=== PATIENT | female | born 1950 | race Hispanic/Latino ===

== ENCOUNTER 2018-07-08 00:27 | Inpatient (IN) | payer MEDICARE, OTHER ==
[2018-07-08 00:28] VITALS: BMI 30.9
[2018-07-08 00:31] VITALS: O2SAT 98
--- NOTE | 2018-07-08 00:31 | ED PDOC ---
Psych Transfer Clearance - Clearance Statement Clearance Statement: Reviewed vital signs, lab results and transfer papers. Patient clinically stable for psychiatric admission.
[2018-07-08] MEDS ORDERED: Alum-Mag Hydrox-Simethicone Susp (30 mL) PO PRN (01:26)
[2018-07-08] MEDS ORDERED: Magnesium Hydroxide Susp 30 ml UD PO PRN (01:26)
[2018-07-08] MEDS ORDERED: Bismuth Subsalicylate 262 mg/15 ml Sus (240 ml) PO PRN (01:26)
--- NOTE | 2018-07-08 01:32 | PCM.BM ---
<PrabhaBhavna P - Last Filed: 07/08/18 01:30> Treatment Plan Problems - Problems identified on initial assessmt Social isolation Date Initiated: 07/08/18 Time Initiated: 01:31 Status: Active Hopelessness/Helplessness Date Initiated: 07/08/18 Time Initiated: 01:31 Assessment reference: NA Status: Active Medication nonadherence Date Initiated: 07/08/18 Time Initiated: 01:32 Status: Active Treatment assets and liabiliti Patient Assests: cooperative, negotiates basic needs, cognitively intact Patient Liabilities: poor support system, relationship conflicts, medical pro blems - Milieu Protocol Maintain good personal hygiene: daily Encourage regular showers, daily Remind patient to perform daily oral care, daily Assist patient to perform ADL's Conduct patient checks and document Observation sheet: Q15 minutes Maintain personal safety: every shift Educate patient to report safety concerns to staff, every shift Monitor environment for contraband/sharps Medication safety: Monitor for expected outcome, potential side effects: every shift, Assess barriers to learning: every shift, Assess readiness for medication education: every shift <Opal Matos M - Last Filed: 07/08/18 11:07> Family Contact Family involvement: Family/SO is involved Family contact: Patient agrees to contact, Family has been contacted by patient, Telephone contact initiated by staff Family contact name: Phyllis - daughter Family contacted how many times per week?: 2 - Outside Agency Dr. Robi De La Rosa MD Care involvment: Information-sharing Agency contact number: - Goals for Treatment Patient goals for treatment: Pt will improve overall mood. Pt will be free of suicidal thoughts. Pt will develop strategies for thought distraction when ruminating on the past. Pt will explore and resolve grief and loss issues. Pt will be compliant with medication management. Pt will attend clinical and activity groups. Pt will participate in unit activities. Pt will improve her sleep by getting 7-8 hous of restful sleep each night. Discharge/Continuing Care - Education Needs Education Needs: Family Medication, Family Diagnosis/Disease Process, Family Coping Skills, Family Placement options, Family Community resources, Family Activities of Daily Living, Family Health Practices/Safety, Family Personal Hygiene/Grooming, Family Aftercare Safety Plan, Patient Medication, Patient Diagnosis/Disease Process, Patient Coping Skills, Patient Placement options, Patient Community resources, Patient Activities of Daily Living, Patient Health Practices/Safety, Patient Personal Hygiene/Grooming, Patient Aftercare Safety Plan - Discharge Discharge Criteria: Tolerates medication w/o severe side effects, Normal sleep pattern, Ability to care for self, Reduction of target symptoms, Other (Free of manic symptoms) Discharge to:: Home, With Family - Additional Comments 07/08/18 11:12 Pt seen and discussed in team meeting. Reason for hospitalization reviewed and discussed. Pt was a transfer form [facility] ED. Pt was recently discharged from [facility] on 07/06/2018. Pt reported she presented herself to the emergency room because "I was lonely and going nurse coordinator nurse coordinator. I was in analisa land." When asked whats he meant by "[place]" pt stated 'I was going crazy." Pt reported that she the of her she has not been able to cope with his loss and feels lonely. Pt's in March 2018. Pt reported that she was to her for 54 years and "when the security blanket is swiped off underneath your feet you get depressed and like me." Pt continued to state "I lost it" and "I don't feel right." Pt reported feeling depressed. Pt denied feelings of anger and anxiety. Pt reported that her daughter, Phyllis is upset with her because "I checked myself into the hospital again." Pt continued to talk about sleep issues since 1990 and calling it "psychosis." Pt's medical and social issues reviewed and discussed. Pt's medications reviewed and discussed. Pt verbalized agreement to Abilify 5mg. Please refer to Dr. Herzog's progress note for additional information. Pt presents with pressured and loud speech. Pt later returned to Dr. Herzog and feature writer and reported that she believes she can resurrect the . Pt provided SW with verbal authorization to contact he Phyllis brooke ([phone]) for additional collateral information. SW will continue to follow case. - Treatment Team Participation Discussed with Family/SO: No Was Patient/Family/SO present at Treatment Team Meeting: Yes <Esthela Vargas - Last Filed: 07/13/18 09:21> - Diagnosis (1) Bipolar I disorder Status: Acute Interventions: Medication management, Individual and group therapy, Psychoeducation 07/13/18 09:20
[2018-07-08 08:04] LABS: HEMOGLOBIN 12.6 g/dL (12.0-16.0); MEAN CELL VOLUME 78.8 fl (81.0-99.0); MEAN CORPUSCULAR HEMOGLOBIN 25.3 pg (27.0-31.0); MEAN CORPUSCULAR HGB CONC 32.1 g/dL (33.0-37.0); RBC 4.99 Mil/uL (3.80-5.20); RED CELL DISTRIBUTION WIDTH 15.7 % (11.5-14.5); WHITE BLOOD COUNT 5.8 K/uL (4.8-10.8)
[2018-07-08 08:24] LABS: ALB/GLOB RATIO 1.3 (1.0-2.1); ALBUMIN 4.4 g/dL (3.5-5.0); ALT/SGPT 21 U/L (9-52); AST/SGOT 24 U/L (14-36); BLOOD UREA NITROGEN 12 mg/dl (7-17); CALCIUM 9.7 mg/dL (8.4-10.2); GFR NON-AFRICAN AMERICAN 55; HDL CHOLESTEROL 57 MG/DL (30-70)
[2018-07-08 08:30] LABS: IRON 52 ug/dL (37-170)
[2018-07-08 08:36] LABS: LDL CHOLESTEROL 71 mg/dL (0-129)
[2018-07-08 08:48] LABS: % IRON SATURATION 13 % (20-55); TOTAL IRON BINDING CAPACITY 387 ug/dL (250-450)
[2018-07-08 09:00] LABS: FERRITIN 10.5 ng/Ml (11.1-264.0)
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
[2018-07-08 17:37] LABS: FOLATE > 20.0 ng/mL
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
--- NOTE | 2018-07-10 15:27 | PCM.PYCHPN ---
Psychiatric Progress Note - Psychiatric Progress Note Patient seen today, length of contact: pt evaluated discussed with team chart reviewed Patient Chief Complaint: patient has been less agitated and less delusional today but says that she cant resurrect humans now but still can resurrect animals.pt has remained with hypomanic mood and racing thoughts and remains with poor insight and poor judgement and need further stabilization. Medication Change: Yes (increasing trileptal) Medical Record Reviewed: Yes Mental Status Examination - Cognitive Function Orientation: Person, Place, Situation, Time Memory: Intact Attention: WNL Concentration: Poor Association: Loose Fund of Knowledge: Poor - Mood Mood: Depressed, Anxious - Affect Affect: Constricted, Other - Speech Speech: Loud, Pressured - Formal Thought Process Formal Thought Process: Delusions, Paranoia, Flight of ideas - Suicidal Ideation Suicidal Ideation: No - Homicidal Ideation Homicidal Ideation: No Goal/Treatment Plan - Goal/Treatment Plan Need for Continued Stay: Remain at risks for inpatient hospitalization, Discharge may exacerbated symptoms Progress Toward Problem(s) and Goals/Treatment Plan: Pt continue abilify 10 mg daily and increase trileptal to 300 mg bid for mood stabilization and insomnia and racing thoughts and engage pt in therapy. Prn meds for agitation. Psychoeducation hospitalist consult for medical issues
[2018-07-11] MEDS: Acyclovir 5% OINT 15 APPLIC/15 GM EXT SCH ×3 (16:22→22:09)
--- NOTE | 2018-07-11 16:28 | PCM.PYCHPN ---
Psychiatric Progress Note - Psychiatric Progress Note Patient seen today, length of contact: pt evaluated discussed with team chart reviewed Patient Chief Complaint: dont know i get anxious Problems Identified/Issues Discussed: alteration in mood alteration in cognition Medical Problems: per chart Diagnostic Results: per chart DSM 5 Symptoms Update: alteration in mood alteration in cognition Medication Change: No Medical Record Reviewed: Yes Consults ordered or reviewed: pt seen by hospitalist Mental Status Examination - Cognitive Function Orientation: Person, Place, Situation, Time Memory: Intact Attention: WNL Concentration: Poor Association: Loose Fund of Knowledge: Poor Decription of patient's judgement and insights: impaired - Mood Mood: Depressed, Anxious - Affect Affect: Constricted, Other - Speech Speech: Loud, Pressured - Formal Thought Process Formal Thought Process: Delusions, Paranoia, Flight of ideas - Suicidal Ideation Suicidal Ideation: No - Homicidal Ideation Homicidal Ideation: No Goal/Treatment Plan - Goal/Treatment Plan Need for Continued Stay: Remain at risks for inpatient hospitalization, Discharge may exacerbated symptoms Progress Toward Problem(s) and Goals/Treatment Plan: inpt milieu adjust meds per clinical status pt placed on 1 to 1 frequent redirection to remain in room-pt found to have shingles being treated by hospitalist-contact isolation discharge planning in progress Estimated Date of D/C: 07/17/18 - Smoking Cessation Smoking Cessation Initiated: No Reason for not providing: pt deferred
[2018-07-12] MEDS: Acyclovir 5% OINT 15 APPLIC/15 GM EXT SCH ×8 (01:02→22:15)
--- NOTE | 2018-07-12 11:19 | PCM.PYCHPN ---
Psychiatric Progress Note - Psychiatric Progress Note Patient seen today, length of contact: pt evaluated discussed with team chart reviewed Patient Chief Complaint: pt has been placed on contact precautions 2nd to shingles-was evaluated by hospitalist yesterday and started on zovirax ointment. pt was placed on a one one yesterday because pt required frequent redirection to remain in room. pt subsequently has been moved to [facility] which is in front of nursing station. pt continues to anxious at times, labile, requires frequent redirection, shouts out loud at times, pt 07/07/18 qtc 436ms-receiving abilify 10mg po am and seroquel 100mg po hs. pt received prn vistaril 25mg po prn for anxiety today. she received vistaril 25mg po last night. pt is reportedly eating and adherent with standing medications. pt denies stiffness involuntary movements. Problems Identified/Issues Discussed: alteration in mood alteration in cognition Medical Problems: per chart Diagnostic Results: per psychiatry per medicine per nursing per health and social care teacher DSM 5 Symptoms Update: labile, anxious Medication Change: No Medical Record Reviewed: Yes Consults ordered or reviewed: pt seen by hospitalist Mental Status Examination - Cognitive Function Orientation: Person, Place, Situation, Time Memory: Intact Attention: WNL Concentration: Poor Association: Loose Fund of Knowledge: Poor Decription of patient's judgement and insights: impaired - Mood Mood: Depressed, Anxious - Affect Affect: Constricted, Other - Speech Speech: Loud, Pressured - Formal Thought Process Formal Thought Process: Delusions, Paranoia, Flight of ideas - Suicidal Ideation Suicidal Ideation: No - Homicidal Ideation Homicidal Ideation: No Goal/Treatment Plan - Goal/Treatment Plan Need for Continued Stay: Remain at risks for inpatient hospitalization, Discharge may exacerbated symptoms Progress Toward Problem(s) and Goals/Treatment Plan: inpt milieu adjust meds per clinical status-pt continues to be labile will add trileptal 150 mg po 1300 continue trileptil 300mg po bid-team can reassess in am discontinue 1 to 1 pt found to have shingles being treated by hospitalist-contact isolation discharge planning in progress Estimated Date of D/C: 07/17/18 - Smoking Cessation Smoking Cessation Initiated: No Reason for not providing: defers
[2018-07-13] MEDS: Acyclovir 5% OINT 15 APPLIC/15 GM EXT SCH ×8 (01:05→21:08)
[2018-07-13] MEDS: Risperidone M tab 1 MG PO SCH ×2 (10:45→21:08)
--- NOTE | 2018-07-13 10:53 | PCM.PYCHPN ---
Psychiatric Progress Note - Psychiatric Progress Note Patient seen today, length of contact: Pt evaluated, case discussed w/ team, chart reviewed Patient Chief Complaint: "I can resurrect animals." Problems Identified/Issues Discussed: Patient continues to be manic, disorganized, tangential, difficult to redirect and believes she has special abilities to resurrect animals. She is also yelling on the unit for no apparent reason. We discussed increasing the Trileptal and switching her to Risperdal with the possibility of putting her on a long acting injectable as she has very poor compliance with her medications. Medication Change: Yes (Increase Trileptal; Start Risperdal) Medical Record Reviewed: Yes Consults ordered or reviewed: Medicine consult Mental Status Examination - Cognitive Function Orientation: Person, Place, Situation, Time Attention: Poor Concentration: Poor Association: Loose Fund of Knowledge: Poor Decription of patient's judgement and insights: Poor I/J - Mood Mood: Anxious - Affect Affect: Other (Labile) - Speech Speech: Loud, Pressured - Formal Thought Process Formal Thought Process: Delusions, Paranoia, Flight of ideas Psychotic Thoughts and Behaviors: +Delusions - Suicidal Ideation Suicidal Ideation: No - Homicidal Ideation Homicidal Ideation: No Goal/Treatment Plan - Goal/Treatment Plan Need for Continued Stay: Remain at risks for inpatient hospitalization, Discharge may exacerbated symptoms Progress Toward Problem(s) and Goals/Treatment Plan: Bipolar I Disorder -Increase Trileptal -Start Risperdal; patient may benefit from long acting injectable if she is agreeable as she has poor compliance with treatment and medications -Medicine consult -Individual and group therapy -Psychoeducation -Disposition planning Estimated Date of D/C: 07/17/18
[2018-07-13 15:53] VITALS: PULSE 87; RESP 18; TEMP 97.6
[2018-07-13 18:27] LABS: ALB/GLOB RATIO 1.3 (1.0-2.1); ALBUMIN 3.7 g/dL (3.5-5.0); ALT/SGPT 22 U/L (9-52); AST/SGOT 21 U/L (14-36); BLOOD UREA NITROGEN 12 mg/dl (7-17); CALCIUM 8.6 mg/dL (8.4-10.2); GFR NON-AFRICAN AMERICAN > 60
[2018-07-13 20:19] VITALS: BP 148/84
[2018-07-13] MEDS ORDERED: Risperidone M tab 1 MG PO SCH (21:00)
[2018-07-13 21:11] LABS: BLOOD UREA NITROGEN 11 mg/dl (7-17); GFR NON-AFRICAN AMERICAN > 60
[2018-07-13 21:12] LABS: CALCIUM 8.7 mg/dL (8.4-10.2)
--- NOTE | 2018-07-14 10:54 | PCM.PYCHDC ---
Mental Status Examination - Mental Status Examination Description of patient's judgement and insight: Poor I/J Psychotic Thoughts and Behaviors: +Delusions Discharge Summary - Discharge Note Reason for Hospitalization: 68 yo female w/ h/o Bipolar disorder admitted w/ acute erick and psychosis. Laboratory Data: Abnormal Lab Results 07/13/18 07/13/18 17:02 20:24 Sodium 111 L* 112 L* Potassium 3.7 3.8 Chloride 76 L 76 L Carbon Dioxide 24 25 Anion Gap 15 15 BUN 12 11 Creatinine 0.8 0.7 Est GFR ( Amer) > 60 > 60 Est GFR (Non-Af Amer) > 60 > 60 Random Glucose 115 H 117 H Calcium 8.6 8.7 Total Bilirubin 0.4 AST 21 ALT 22 Alkaline Phosphatase 80 Total Protein 6.5 Albumin 3.7 Globulin 2.8 Albumin/Globulin Ratio 1.3 Consultations:: List each consultation separately and include: 1. Reason for request. 2. Findings. 3. Follow-up Consultations: Medicine consult Summary of Hospital Course include:: 1. Description of specific treatment plan utilized for patients during their course of treatmen. 2. Summarize the time- course for resolution of acute symptoms and/or regressed behaviors. 3. Describe issues identified and worked on during hospitalization. 4. Describe medication utilized. 5. Describe medical problems identified and treated. 6. Reassessment of suicide risk Summary of Hospital Course: Patient was transferred to the medical unit for further treatment and management of severe hyponatremia (111) possibly secondary to excessive drinking of water vs treatment with trileptal (which was discontinued after hyponatremia was discovered). - Diagnosis (1) Bipolar I disorder Status: Acute - Final Diagnosis (DSM 5) Condition upon Discharge: SERIOUS DSM 5: Bipolar Disorder; Hyponatremia Disposition: Trans to Other Acute Care Hosp Follow-up Treatment Plan: Bipolar I Disorder -Stop Trileptal -Transfer to medicine for treatment of severe hyponatremia
== END 2018-07-13 23:00 | disposition short-term general hospital (02) | DRG 885 ==
LOC: H.ER 00:27 → H.STEP 00:31
PROVIDERS: ADMIT Psychiatry & Neurology Psychiatry; ATTEND Psychiatry & Neurology Psychiatry
PROC: GZ51ZZZ Individual Psychotherapy, Behavioral (ICD-10-PCS; principal; 2018-07-08)
PROC: GZ56ZZZ Individual Psychotherapy, Supportive (ICD-10-PCS; 2018-07-08)
DX: F31.64 Bipolar disorder, current episode mixed, severe, with psychotic features (principal); Z86.010 Personal history of colon polyps; Z87.01 Personal history of pneumonia (recurrent); Z87.891 Personal history of nicotine dependence; F41.9 Anxiety disorder, unspecified; B02.9 Zoster without complications

== ENCOUNTER 2018-07-13 23:26 | Inpatient (IN) | payer MEDICARE, OTHER ==
--- NOTE | 2018-07-14 00:15 | ED PDOC ---
HPI: General Adult Time Seen by Provider: 07/13/18 23:31 Chief Complaint (Provider): Abnormal Lab History Per: Patient History/Exam Limitations: no limitations Additional Complaint(s): 68 y/o female with history of depression and bipolar disorder presents for evaluation of abnormal lab. Patient was on the geropsych unit and she was n oted to be very polydipsic. Sodium level was performed and she was found to have a level of 111; sodium was repeated a few hours ago and level was 112. Case was referred by Dr. Hernandez to be admitted for further monitoring and correction of electrolyte abnormality. Patient denies any headache or vomiting. Chart review reveals patient had 1 prior history of hyponatremia. Past Medical History Reviewed: Historical Data, Nursing Documentation, Vital Signs - Medical History PMH: Bipolar Disorder, Depression, Pneumonia Denies: Anxiety, Diabetes, Hepatitis, HIV, HTN, Paranoia, Post Traumatic Stress Disorder, Schizophrenia, Seizures, Sexually Transmitted Disease - Surgical History Surgical History: Denies: Pacemaker - Family History Family History: States: Unknown Family Hx - Social History Current smoker - smoking cessation education provided: No Alcohol: None Drugs: Denies - Immunization History Hx Tetanus Toxoid Vaccination: No Hx Influenza Vaccination: No Hx Pneumococcal Vaccination: No - Home Medications Home Medications: Ambulatory Orders Medication Instructions Recorded Divalproex [Depakote DR] 500 mg PO BID 12/13/13 QUEtiapine [SEROquel] 300 mg PO BID 12/13/13 Polyethylene Glycol 3350 [Miralax] 17 gm PO DAILY 02/28/16 ALPRAZolam [Xanax] 1 mg PO QAM 08/24/16 ALPRAZolam [Xanax] 3 mg PO HS 08/24/16 Lactulose 20 gm PO BID PRN #180 ml 08/31/16 - Allergies Allergies/Adverse Reactions: Allergies Allergy/AdvReac Type Severity Reaction Status Date / Time No Known Allergies Allergy Verified 07/07/18 14:38 Review of Systems ROS Statement: Except As Marked, All Systems Reviewed And Found Negative Constitutional: Positive for: Other (polydipsia) Gastrointestinal: Negative for: Vomiting Neurological: Negative for: Headache Physical Exam - Reviewed Nursing Documentation Reviewed: Yes Vital Signs Reviewed: Yes - Physical Exam Appears: Positive for: Non-toxic, No Acute Distress (obese) Head Exam: Positive for: ATRAUMATIC, NORMAL INSPECTION, NORMOCEPHALIC Skin: Positive for: Normal Color, Warm, DRY Eye Exam: Positive for: EOMI, Normal appearance, PERRL ENT: Positive for: Normal ENT Inspection Neck: Positive for: Normal, Painless ROM Cardiovascular/Chest: Positive for: Regular Rate, Rhythm. Negative for: Murmur Respiratory: Positive for: Normal Breath Sounds. Negative for: Respiratory Distress Gastrointestinal/Abdominal: Positive for: Normal Exam, Soft, Other (obese abdomen). Negative for: Tenderness Back: Positive for: Normal Inspection Extremity: Positive for: Normal ROM. Negative for: Pedal Edema, Deformity Neurological/Psych: Positive for: Awake, Alert, Normal Tone, Mood/Affect (flat). 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 Case referred to Dr. Hernandez for admission. Scribe Attestation: Documented by Curtis Shaffer, acting as a scribe Ave Donaldson MD Provider Scribe Attestation: All medical record entries made by the Scribe were at my direction and p ersonally dictated by me. I have reviewed the chart and agree that the record accurately reflects my personal performance of the history, physical exam, medical decision making, and the department course for this patient. I have also personally directed, reviewed, and agree with the discharge instructions and disposition Disposition - Clinical Impression Clinical Impression: Hyponatremia, Psychogenic polydipsia - Disposition Disposition Time: 23:00 Condition: FAIR
[2018-07-14 01:03] LABS: BASO % 0.6 % (0.0-2.0); EOS # 0.2 K/uL (0.0-0.7); EOS % 2.4 % (0.0-4.0); HEMOGLOBIN 12.6 g/dL (12.0-16.0); LYMPH # 1.5 K/uL (1.0-4.3); LYMPH % 22.2 % (20.0-40.0); MEAN CELL VOLUME 75.2 fl (81.0-99.0); MEAN CORPUSCULAR HEMOGLOBIN 25.7 pg (27.0-31.0); MEAN CORPUSCULAR HGB CONC 34.2 g/dL (33.0-37.0); MEAN PLATELET VOLUME 7.8 fl (7.2-11.7); MONO # 0.6 K/uL (0.0-0.8); NEUT # 4.4 K/uL (1.8-7.0); NEUT % 65.8 % (50.0-75.0); RBC 4.88 Mil/uL (3.80-5.20); RED CELL DISTRIBUTION WIDTH 15.9 % (11.5-14.5); WHITE BLOOD COUNT 6.7 K/uL (4.8-10.8)
[2018-07-14 01:05] LABS: SQUAMOUS EPITHIAL < 1 /hpf (0-5); URINE BACTERIA MOD (<OCC); URINE BILIRUBIN NEGATIVE (NEGATIVE); URINE BLOOD MODERATE (NEGATIVE); URINE CLARITY CLEAR (Clear); URINE COLOR STRAW (YELLOW); URINE GLUCOSE (UA) NEG (NEGATIVE); URINE LEUKOCYTE ESTERASE MOD Leu/uL (Negative); URINE PROTEIN NEGATIVE (NEGATIVE); URINE UROBILINOGEN 0.2-1.0 mg/dL (0.2-1.0)
[2018-07-14 01:09] LABS: PROTHROMBIN TIME 11.3 Seconds (9.8-13.1)
[2018-07-14 01:11] LABS: PARTIAL THROMBOPLASTIN TIME 35.2 Seconds (25.6-37.1)
[2018-07-14 01:18] LABS: B-TYPE NATRIURETIC PEPTIDE 114 pg/ml (0-900)
[2018-07-14 01:19] LABS: ALB/GLOB RATIO 1.3 (1.0-2.1); ALBUMIN 4.3 g/dL (3.5-5.0); ALT/SGPT 21 U/L (9-52); AST/SGOT 36 U/L (14-36); BLOOD UREA NITROGEN 13 mg/dl (7-17); CALCIUM 8.9 mg/dL (8.4-10.2); GFR NON-AFRICAN AMERICAN > 60
[2018-07-14] MEDS: Sodium Chloride 3% 500 ML IV SCH ×2 (02:36→17:52)
--- NOTE | 2018-07-14 04:14 | CP.PCM.HP ---
History of Present Illness - History of Present Illness History of Present Illness: PMD: Not on staff Chief Complaint: Hyponatremia The Patient was seen and examined on the Psychiatric Unit HPI: The hx was obtained from the patient, the medical staff and after review of the laboratory and medical records. This is a 68 years old female with no significant past medical record, transferred from the [facility] [place] [facility] to the [facility] psychiatric Unit for management depression. Here she was noted drinking large amounts of water and blood work was sent to the lab for electrolytes which showed Sodium of 111. This was repeated and the new level was 112mMol/L No hx of diabetes. She referred only thirst but no headache, dizziness, nausea, vomits, palpitation, chest pain, urinary symptoms nor diarrhea. 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 absent: Blurred Vision, Diplopia, Sees Flashes Ears: absent: Ear Discharge, Ear Pain, Tinnitus, Dizziness Nose/Mouth/Throat: absent: Epistaxis, Nasal Congestion, Nasal Discharge, Sinus Pain, Sinus Pressure - Cardiovascular Cardiovascular: absent: Chest Pain, Dyspnea, Edema, Orthopnea - Respiratory Respiratory: absent: Cough, Dyspnea, Wheezing, Stridor - Gastrointestinal Gastrointestinal: absent: Constipation, Diarrhea, Loose Stools, Nausea - Genitourinary Genitourinary: absent: Dysuria, Flank Pain, Hematuria, Pyuria - Musculoskeletal Musculoskeletal: absent: Arthralgias, Myalgias - Integumentary Integumentary: absent: Skin Ulcer, Sores, Striae, Swelling - Psychiatric Psychiatric: Depression. absent: Anxiety - Endocrine Endocrine: Polydipsia, Polyphagia. absent: Palpitations, Polyuria - Hematologic/Lymphatic Hematologic: absent: Easy Bleeding, Easy Bruising Past Patient History - Infectious Disease Hx of Infectious Diseases: None - Tetanus Immunizations Tetanus Immunization: Unknown - Past Social History Smoking Status: Former Smoker Chewing Tobacco Use: No Cigar Use: No Alcohol: None Drugs: Denies - CARDIAC Hx Cardiac Disorders: No Hx Hypertension: No Hx Pacemaker: No - PULMONARY Hx Pneumonia: Yes - NEUROLOGICAL Hx Seizures: No - HEENT Hx HEENT Problems: Yes (eyeglasses) - RENAL Hx Chronic Kidney Disease: Yes Other/Comment: Hyponatremia 2017 - ENDOCRINE/METABOLIC Hx Endocrine Disorders: No - HEMATOLOGICAL/ONCOLOGICAL Hx Blood Disorders: No Hx Human Immunodeficiency Virus (HIV): No - INTEGUMENTARY Other/Comment: red burn to right arm - MUSCULOSKELETAL/RHEUMATOLOGICAL Hx Musculoskeletal Disorders: No Hx Falls: No - GASTROINTESTINAL Hx Gastrointestinal Disorders: No Other/Comment: colonoscopy 02/28/2016 colon polyps with bx - GENITOURINARY/GYNECOLOGICAL Hx Sexually Transmitted Disorders: No - PSYCHIATRIC Hx Anxiety: No Hx Bipolar Disorder: Yes Hx Depression: Yes Hx Paranoia: No Hx Post Traumatic Stress Disorder: No Hx Schizophrenia: No - SURGICAL HISTORY Hx Surgeries: No Other/Comment: Anal Fistula repair - ANESTHESIA Hx Anesthesia Reactions: No Hx Malignant Hyperthermia: No Meds Allergies/Adverse Reactions: Allergies Allergy/AdvReac Type Severity Reaction Status Date / Time No Known Allergies Allergy Verified 07/07/18 14:38 Physical Exam - Constitutional Appears: No Acute Distress - Head Exam Head Exam: ATRAUMATIC, NORMOCEPHALIC - Eye Exam Eye Exam: EOMI, Normal appearance - ENT Exam ENT Exam: Mucous Membranes Moist, Normal Exam, Normal External Ear Exam - Neck Exam Neck exam: Positive for: Full Rom, Normal Inspection. Negative for: Lym phadenopathy, Tenderness - Respiratory Exam Respiratory Exam: Clear to Auscultation Bilateral. absent: Rales, Rhonchi, Wheezes, Stridor - Cardiovascular Exam Cardiovascular Exam: REGULAR RHYTHM, RRR, +S1, +S2. absent: Gallop, JVD - GI/Abdominal Exam GI & Abdominal Exam: Normal Bowel Sounds, Soft. absent: Mass, Organomegaly, Tenderness - Rectal Exam Rectal Exam: Deferred - Extremities Exam Extremities exam: Positive for: full ROM, normal inspection. Negative for: calf tenderness, pedal edema - Back Exam Back exam: NORMAL INSPECTION. absent: CVA tenderness (L), CVA tenderness (R) Additional comments: Red rashes diffuse at both buttocks - Neurological Exam Neurological exam: Alert, CN II-XII Intact, Oriented x3, Reflexes Normal - Psychiatric Exam Psychiatric exam: Normal Affect, Normal Mood - Skin Skin Exam: Dry, Intact, Normal Color, Warm Results - Vital Signs Recent Vital Signs: Last Vital Signs Temp 97.9 F 07/14/18 00:18 Pulse 78 07/14/18 00:18 Resp 17 07/14/18 00:18 BP 99/60 L 07/14/18 00:18 Pulse Ox 97 07/14/18 00:18 - Labs Result Diagrams: 07/14/18 00:45 07/14/18 04:15 Labs: Laboratory Results - last 24 hr 07/14/18 07/14/18 07/14/18 00:45 00:45 00:45 WBC 6.7 RBC 4.88 Hgb 12.6 Hct 36.7 MCV 75.2 L D MCH 25.7 L MCHC 34.2 RDW 15.9 H Plt Count 239 MPV 7.8 Neut % (Auto) 65.8 Lymph % (Auto) 22.2 [place] % (Auto) 9.0 Eos % (Auto) 2.4 Baso % (Auto) 0.6 Neut # (Auto) 4.4 Lymph # (Auto) 1.5 [place] # (Auto) 0.6 Eos # (Auto) 0.2 Baso # (Auto) 0.0 PT INR APTT Sodium 114 L* Potassium 4.1 Chloride 75 L Carbon Dioxide 26 Anion Gap 17 BUN 13 Creatinine 0.7 Est GFR ( Amer) > 60 Est GFR (Non-Af Amer) > 60 POC Glucose (mg/dL) Random Glucose 101 Serum Osmolality Calcium 8.9 Magnesium 1.7 Total Bilirubin 0.7 AST 36 D ALT 21 Alkaline Phosphatase 80 NT-Pro-B Natriuret Pep 114 Total Protein 7.6 Albumin 4.3 Globulin 3.3 Albumin/Globulin Ratio 1.3 TSH 3rd Generation 1.88 Urine Color Urine Clarity Urine pH Ur Specific [place] Urine Protein Urine Glucose (UA) Urine Ketones Urine Blood Urine Nitrate Urine Bilirubin Urine Urobilinogen Ur Leukocyte Esterase Urine RBC (Auto) Urine Microscopic WBC Ur Squamous Epith Cells Urine Bacteria Urine Osmolality 270 L Ur Random Sodium 70 Ur Random Potassium 20.7 07/14/18 07/14/18 07/14/18 00:45 00:45 00:45 WBC RBC Hgb Hct MCV MCH MCHC RDW Plt Count MPV Neut % (Auto) Lymph % (Auto) [place] % (Auto) Eos % (Auto) Baso % (Auto) Neut # (Auto) Lymph # (Auto) [place] # (Auto) Eos # (Auto) Baso # (Auto) PT 11.3 INR 1.0 APTT 35.2 Sodium Potassium Chloride Carbon Dioxide Anion Gap BUN Creatinine Est GFR ( Amer) Est GFR (Non-Af Amer) POC Glucose (mg/dL) Random Glucose Serum Osmolality 253 L Calcium Magnesium Total Bilirubin AST ALT Alkaline Phosphatase NT-Pro-B Natriuret Pep Total Protein Albumin Globulin Albumin/Globulin Ratio TSH 3rd Generation Urine Color Straw Urine Clarity Clear Urine pH 7.0 Ur Specific [place] 1.006 Urine Protein Negative Urine Glucose (UA) Neg Urine Ketones Negative Urine Blood Moderate Urine Nitrate Negative Urine Bilirubin Negative Urine Urobilinogen 0.2-1.0 Ur Leukocyte Esterase Mod Urine RBC (Auto) 3 Urine Microscopic WBC 6 H Ur Squamous Epith Cells < 1 Urine Bacteria Mod H Urine Osmolality Ur Random Sodium Ur Random Potassium 07/14/18 00:45 WBC RBC Hgb Hct MCV MCH MCHC RDW Plt Count MPV Neut % (Auto) Lymph % (Auto) [place] % (Auto) Eos % (Auto) Baso % (Auto) Neut # (Auto) Lymph # (Auto) [place] # (Auto) Eos # (Auto) Baso # (Auto) PT INR APTT Sodium Potassium Chloride Carbon Dioxide Anion Gap BUN Creatinine Est GFR ( Amer) Est GFR (Non-Af Amer) POC Glucose (mg/dL) 107 Random Glucose Serum Osmolality Calcium Magnesium Total Bilirubin AST ALT Alkaline Phosphatase NT-Pro-B Natriuret Pep Total Protein Albumin Globulin Albumin/Globulin Ratio TSH 3rd Generation Urine Color Urine Clarity Urine pH Ur Specific [place] Urine Protein Urine Glucose (UA) Urine Ketones Urine Blood Urine Nitrate Urine Bilirubin Urine Urobilinogen Ur Leukocyte Esterase Urine RBC (Auto) Urine Microscopic WBC Ur Squamous Epith Cells Urine Bacteria Urine Osmolality Ur Random Sodium Ur Random Potassium Assessment & Plan - Assessment and Plan (Free Text) Plan: 68 y/o woman w/ pmh of bipolar disorder and depression, admitted to Psych Unit for Depression on 07/08/18. Her Sodium has decreasd to 111mMol/L after drinking large amount of water. #. Hyponatremia secondary to Psychogenic Polydipsia - patient received Lasix 40mg IVP - Restrict water to one Liter daily - 3% Sodium Chloride - electrolytes Q4H - [facility] #.Bipolar Disorder type I - Consult Psychiatry Dr Herzog - management as per psych team - continue Psychiatric medications #. Herpes Simplex on Buttocks - Acyclovir #. DVT prophylaxis with Lovenox #. Code Status: Full - Date & Time Date: 07/14/18 Time: 04:14
[2018-07-14 05:15] LABS: BLOOD UREA NITROGEN 13 mg/dl (7-17); CALCIUM 8.7 mg/dL (8.4-10.2); GFR NON-AFRICAN AMERICAN > 60
[2018-07-14 07:41] VITALS: BMI 32.4
--- NOTE | 2018-07-14 08:24 | CARD ---
APPROVED REPORT Date of service: 07/14/2018 EKG Measurement Heart [id number] <Conclusion> Normal sinus rhythm Normal ECG
[2018-07-14] MEDS: POLYETHYLENE GLYCOL 3350 17 GM/Dose PACKET PO SCH (08:38)
[2018-07-14] MEDS ORDERED: QUEtiapine 300 MG TABLET PO SCH (09:00)
[2018-07-14] MEDS ORDERED: Divalproex 500 mg DR(BID formulation) PO SCH (09:00)
[2018-07-14 09:58] LABS: BLOOD UREA NITROGEN 14 mg/dl (7-17); CALCIUM 8.9 mg/dL (8.4-10.2); GFR NON-AFRICAN AMERICAN > 60
[2018-07-14] MEDS: Enoxaparin 40 mg Syringe SC SCH (10:56)
--- NOTE | 2018-07-14 12:20 | CP.PCM.CON ---
History of Present Illness - History of Present Illness History of Present Illness: pt is a 68ys old female with previous diagnosis of bipolar disorder, has been admitted to geriatric psychiatry for increased depression as her recently , pt has been presenting with irritability restlessness and delusional thought process she was noted drinking large amounts of water and blood work was sent to the lab for electrolytes which showed Sodium of 111. on evaluation pt is awake alert ,oriented to person and place, speech is underproductive mood is anxious, affect irritable and she is not cooperative with the interview , denied any current perceptual disturbances, denied suicidal or homicidal ideation Past Patient History - Infectious Disease Hx of Infectious Diseases: None - Tetanus Immunizations Tetanus Immunization: Unknown - Past Medical History & Family History Past Medical History?: Yes - Past Social History Smoking Status: Former Smoker Chewing Tobacco Use: No Cigar Use: No Alcohol: None Drugs: Denies - CARDIAC Hx Cardiac Disorders: No Hx Hypertension: No Hx Pacemaker: No - PULMONARY Hx Pneumonia: Yes - NEUROLOGICAL Hx Seizures: No - HEENT Hx HEENT Problems: Yes (eyeglasses) - RENAL Hx Chronic Kidney Disease: Yes Other/Comment: Hyponatremia 2017 - ENDOCRINE/METABOLIC Hx Endocrine Disorders: No - HEMATOLOGICAL/ONCOLOGICAL Hx Blood Disorders: No Hx Human Immunodeficiency Virus (HIV): No - INTEGUMENTARY Other/Comment: red burn to right arm - MUSCULOSKELETAL/RHEUMATOLOGICAL Hx Musculoskeletal Disorders: No Hx Falls: No - GASTROINTESTINAL Hx Gastrointestinal Disorders: No Other/Comment: colonoscopy 02/28/2016 colon polyps with bx - GENITOURINARY/GYNECOLOGICAL Hx Sexually Transmitted Disorders: No - PSYCHIATRIC Hx Anxiety: No Hx Bipolar Disorder: Yes Hx Depression: Yes Hx Paranoia: No Hx Post Traumatic Stress Disorder: No Hx Schizophrenia: No - SURGICAL HISTORY Hx Surgeries: No Other/Comment: Anal Fistula repair - ANESTHESIA Hx Anesthesia Reactions: No Hx Malignant Hyperthermia: No Meds Allergies/Adverse Reactions: Allergies Allergy/AdvReac Type Severity Reaction Status Date / Time No Known Allergies Allergy Verified 07/07/18 14:38 - Medications Medications: Current Medications Enoxaparin Sodium (Lovenox) 40 mg SC DAILY GREGORIO; Protocol Last Admin: 07/14/18 10:56 Dose: 40 mg Sodium Chloride (Hypertonic Saline 3%) 500 mls @ 35 mls/hr IV .[id number] [facility] Stop: 07/15/18 01:46 Last Admin: 07/14/18 02:36 Dose: 35 mls/hr Lactulose (Enulose) 20 gm PO BID PRN PRN Reason: Constipation Polyethylene Glycol (Miralax) 17 gm PO DAILY GREGORIO Last Admin: 07/14/18 08:38 Dose: 17 gm Sodium Chloride (Sodium Chloride Tab) 1 gm PO DAILY [facility] Results - Vital Signs Recent Vital Signs: Last Vital Signs Temp 97.9 F 07/14/18 11:58 Pulse 85 07/14/18 11:58 Resp 18 07/14/18 11:58 BP 125/77 07/14/18 11:58 Pulse Ox 98 07/14/18 11:58 - Labs Result Diagrams: 07/14/18 00:45 07/14/18 08:00 Labs: Laboratory Results - last 24 hr 07/14/18 07/14/18 07/14/18 00:45 00:45 00:45 WBC 6.7 RBC 4.88 Hgb 12.6 Hct 36.7 MCV 75.2 L D MCH 25.7 L MCHC 34.2 RDW 15.9 H Plt Count 239 MPV 7.8 Neut % (Auto) 65.8 Lymph % (Auto) 22.2 [place] % (Auto) 9.0 Eos % (Auto) 2.4 Baso % (Auto) 0.6 Neut # (Auto) 4.4 Lymph # (Auto) 1.5 [place] # (Auto) 0.6 Eos # (Auto) 0.2 Baso # (Auto) 0.0 PT INR APTT Sodium 114 L* Potassium 4.1 Chloride 75 L Carbon Dioxide 26 Anion Gap 17 BUN 13 Creatinine 0.7 Est GFR ( Amer) > 60 Est GFR (Non-Af Amer) > 60 POC Glucose (mg/dL) Random Glucose 101 Serum Osmolality Calcium 8.9 Magnesium 1.7 Total Bilirubin 0.7 AST 36 D ALT 21 Alkaline Phosphatase 80 NT-Pro-B Natriuret Pep 114 Total Protein 7.6 Albumin 4.3 Globulin 3.3 Albumin/Globulin Ratio 1.3 TSH 3rd Generation 1.88 Urine Color Urine Clarity Urine pH Ur Specific [place] Urine Protein Urine Glucose (UA) Urine Ketones Urine Blood Urine Nitrate Urine Bilirubin Urine Urobilinogen Ur Leukocyte Esterase Urine RBC (Auto) Urine Microscopic WBC Ur Squamous Epith Cells Urine Bacteria Urine Osmolality 270 L Ur Random Sodium 70 Ur Random Potassium 20.7 07/14/18 07/14/1807/14/19 00:45 00:45 00:45 WBC RBC Hgb Hct MCV MCH MCHC RDW Plt Count MPV Neut % (Auto) Lymph % (Auto) [place] % (Auto) Eos % (Auto) Baso % (Auto) Neut # (Auto) Lymph # (Auto) [place] # (Auto) Eos # (Auto) Baso # (Auto) PT 11.3 INR 1.0 APTT 35.2 Sodium Potassium Chloride Carbon Dioxide Anion Gap BUN Creatinine Est GFR ( Amer) Est GFR (Non-Af Amer) POC Glucose (mg/dL) Random Glucose Serum Osmolality 253 L Calcium Magnesium Total Bilirubin AST ALT Alkaline Phosphatase NT-Pro-B Natriuret Pep Total Protein Albumin Globulin Albumin/Globulin Ratio TSH 3rd Generation Urine Color Straw Urine Clarity Clear Urine pH 7.0 Ur Specific [place] 1.006 Urine Protein Negative Urine Glucose (UA) Neg Urine Ketones Negative Urine Blood Moderate Urine Nitrate Negative Urine Bilirubin Negative Urine Urobilinogen 0.2-1.0 Ur Leukocyte Esterase Mod Urine RBC (Auto) 3 Urine Microscopic WBC 6 H Ur Squamous Epith Cells < 1 Urine Bacteria Mod H Urine Osmolality Ur Random Sodium Ur Random Potassium 07/14/18 07/14/18 07/14/18 00:45 04:15 08:00 WBC RBC Hgb Hct MCV MCH MCHC RDW Plt Count MPV Neut % (Auto) Lymph % (Auto) [place] % (Auto) Eos % (Auto) Baso % (Auto) Neut # (Auto) Lymph # (Auto) [place] # (Auto) Eos # (Auto) Baso # (Auto) PT INR APTT Sodium 115 L* 118 L* Potassium 3.6 4.0 Chloride 77 L 81 L Carbon Dioxide 27 22 Anion Gap 15 19 BUN 13 14 Creatinine 0.9 0.8 Est GFR ( Amer) > 60 > 60 Est GFR (Non-Af Amer) > 60 > 60 POC Glucose (mg/dL) 107 Random Glucose 95 93 Serum Osmolality Calcium 8.7 8.9 Magnesium Total Bilirubin AST ALT Alkaline Phosphatase NT-Pro-B Natriuret Pep Total Protein Albumin Globulin Albumin/Globulin Ratio TSH 3rd Generation Urine Color Urine Clarity Urine pH Ur Specific [place] Urine Protein Urine Glucose (UA) Urine Ketones Urine Blood Urine Nitrate Urine Bilirubin Urine Urobilinogen Ur Leukocyte Esterase Urine RBC (Auto) Urine Microscopic WBC Ur Squamous Epith Cells Urine Bacteria Urine Osmolality Ur Random Sodium Ur Random Potassium Assessment & Plan - Assessment and Plan (Free Text) Assessment: delirium hyperactive due to hyponatremia / bipolar disorder Plan: please hold trileptal as it can cause more hyponatremia start risperidone mtab 0.5mg bid and 0.5mg qhs
[2018-07-14 12:40] LABS: BLOOD UREA NITROGEN 12 mg/dl (7-17); CALCIUM 8.7 mg/dL (8.4-10.2); GFR NON-AFRICAN AMERICAN > 60
--- NOTE | 2018-07-14 14:10 | CP.PCM.CON ---
History of Present Illness - History of Present Illness History of Present Illness: 68 y/o female with hx/o Bipolar disorder & depression on multiple psych meds was transferred to geriatric Psych [facility] from [facility] [place]. Admission labs showed Ser Sodium of 110. Pt was transferred to ER. Renal consult is requested because of Ser Sodium level of 112. Past Patient History - Infectious Disease Hx of Infectious Diseases: None - Tetanus Immunizations Tetanus Immunization: Unknown - Past Medical History & Family History Past Medical History?: Yes - Past Social History Smoking Status: Former Smoker Chewing Tobacco Use: No Cigar Use: No Alcohol: None Drugs: Denies - CARDIAC Hx Cardiac Disorders: No Hx Hypertension: No Hx Pacemaker: No - PULMONARY Hx Pneumonia: Yes - NEUROLOGICAL Hx Seizures: No - HEENT Hx HEENT Problems: Yes (eyeglasses) - RENAL Hx Chronic Kidney Disease: Yes Other/Comment: Hyponatremia 2017 - ENDOCRINE/METABOLIC Hx Endocrine Disorders: No - HEMATOLOGICAL/ONCOLOGICAL Hx Blood Disorders: No Hx Human Immunodeficiency Virus (HIV): No - INTEGUMENTARY Other/Comment: red burn to right arm - MUSCULOSKELETAL/RHEUMATOLOGICAL Hx Musculoskeletal Disorders: No Hx Falls: No - GASTROINTESTINAL Hx Gastrointestinal Disorders: No Other/Comment: colonoscopy 02/28/2016 colon polyps with bx - GENITOURINARY/GYNECOLOGICAL Hx Sexually Transmitted Disorders: No - PSYCHIATRIC Hx Anxiety: No Hx Bipolar Disorder: Yes Hx Depression: Yes Hx Paranoia: No Hx Post Traumatic Stress Disorder: No Hx Schizophrenia: No - SURGICAL HISTORY Hx Surgeries: No Other/Comment: Anal Fistula repair - ANESTHESIA Hx Anesthesia Reactions: No Hx Malignant Hyperthermia: No Meds Allergies/Adverse Reactions: Allergies Allergy/AdvReac Type Severity Reaction Status Date / Time No Known Allergies Allergy Verified 07/07/18 14:38 - Medications Medications: Current Medications Enoxaparin Sodium (Lovenox) 40 mg SC DAILY [facility]; Protocol Last Admin: 07/14/18 10:56 Dose: 40 mg Sodium Chloride (Hypertonic Saline 3%) 500 mls @ 35 mls/hr IV .[id number] [facility] Stop: 07/15/18 01:46 Last Admin: 07/14/18 02:36 Dose: 35 mls/hr Lactulose (Enulose) 20 gm PO BID PRN PRN Reason: Constipation Polyethylene Glycol (Miralax) 17 gm PO DAILY [facility] Last Admin: 07/14/18 08:38 Dose: 17 gm Risperidone (Risperdal Tab) 0.5 mg PO BID [facility] Risperidone (Risperdal Tab) 0.5 mg PO HS [facility] Sodium Chloride (Sodium Chloride Tab) 1 gm PO DAILY [facility] Last Admin: 07/14/18 13:32 Dose: 1 gm Physical Exam - Constitutional Appears: Confused Additional comments: Pt is lethargig arousable to her name but falls back to sleep, Answers simple questios by saying yes or no. - Head Exam Head Exam: ATRAUMATIC, NORMOCEPHALIC - Eye Exam Additional comments: Conkjunctiva pink Sclera anicteric - ENT Exam ENT Exam: Mucous Membranes Moist - Neck Exam Additional comments: Supple - Respiratory Exam Respiratory Exam: NORMAL BREATHING PATTERN Additional comments: Lungs clear - Cardiovascular Exam Cardiovascular Exam: REGULAR RHYTHM Additional comments: No gallops - GI/Abdominal Exam Additional comments: Abd. is soft obese & nontender. - Extremities Exam Additional comments: No ECC Results - Vital Signs Recent Vital Signs: Last Vital Signs Temp 97.9 F 07/14/18 11:58 Pulse 86 07/14/18 11:59 Resp 20 07/14/18 11:59 BP 125/77 07/14/18 11:58 Pulse Ox 98 07/14/18 11:59 - Labs Result Diagrams: 07/14/18 00:45 07/14/18 12:00 Labs: Laboratory Results - last 24 hr 07/14/18 07/14/18 07/14/18 00:45 00:45 00:45 WBC 6.7 RBC 4.88 Hgb 12.6 Hct 36.7 MCV 75.2 L D MCH 25.7 L MCHC 34.2 RDW 15.9 H Plt Count 239 MPV 7.8 Neut % (Auto) 65.8 Lymph % (Auto) 22.2 [place] % (Auto) 9.0 Eos % (Auto) 2.4 Baso % (Auto) 0.6 Neut # (Auto) 4.4 Lymph # (Auto) 1.5 [place] # (Auto) 0.6 Eos # (Auto) 0.2 Baso # (Auto) 0.0 PT INR APTT Sodium 114 L* Potassium 4.1 Chloride 75 L Carbon Dioxide 26 Anion Gap 17 BUN 13 Creatinine 0.7 Est GFR ( Amer) > 60 Est GFR (Non-Af Amer) > 60 POC Glucose (mg/dL) Random Glucose 101 Serum Osmolality Calcium 8.9 Magnesium 1.7 Total Bilirubin 0.7 AST 36 D ALT 21 Alkaline Phosphatase 80 NT-Pro-B Natriuret Pep 114 Total Protein 7.6 Albumin 4.3 Globulin 3.3 Albumin/Globulin Ratio 1.3 TSH 3rd Generation 1.88 Urine Color Urine Clarity Urine pH Ur Specific [place] Urine Protein Urine Glucose (UA) Urine Ketones Urine Blood Urine Nitrate Urine Bilirubin Urine Urobilinogen Ur Leukocyte Esterase Urine RBC (Auto) Urine Microscopic WBC Ur Squamous Epith Cells Urine Bacteria Urine Osmolality 270 L Ur Random Sodium 70 Ur Random Potassium 20.7 07/14/18 07/14/18 07/14/18 00:45 00:45 00:45 WBC RBC Hgb Hct MCV MCH MCHC RDW Plt Count MPV Neut % (Auto) Lymph % (Auto) [place] % (Auto) Eos % (Auto) Baso % (Auto) Neut # (Auto) Lymph # (Auto) [place] # (Auto) Eos # (Auto) Baso # (Auto) PT 11.3 INR 1.0 APTT 35.2 Sodium Potassium Chloride Carbon Dioxide Anion Gap BUN Creatinine Est GFR ( Amer) Est GFR (Non-Af Amer) POC Glucose (mg/dL) Random Glucose Serum Osmolality 253 L Calcium Magnesium Total Bilirubin AST ALT Alkaline Phosphatase NT-Pro-B Natriuret Pep Total Protein Albumin Globulin Albumin/Globulin Ratio TSH 3rd Generation Urine Color Straw Urine Clarity Clear Urine pH 7.0 Ur Specific [place] 1.006 Urine Protein Negative Urine Glucose (UA) Neg Urine Ketones Negative Urine Blood Moderate Urine Nitrate Negative Urine Bilirubin Negative Urine Urobilinogen 0.2-1.0 Ur Leukocyte Esterase Mod Urine RBC (Auto) 3 Urine Microscopic WBC 6 H Ur Squamous Epith Cells < 1 Urine Bacteria Mod H Urine Osmolality Ur Random Sodium Ur Random Potassium 07/14/18 07/14/18 07/14/18 00:45 04:15 08:00 WBC RBC Hgb Hct MCV MCH MCHC RDW Plt Count MPV Neut % (Auto) Lymph % (Auto) [place] % (Auto) Eos % (Auto) Baso % (Auto) Neut # (Auto) Lymph # (Auto) [place] # (Auto) Eos # (Auto) Baso # (Auto) PT INR APTT Sodium 115 L* 118 L* Potassium 3.6 4.0 Chloride 77 L 81 L Carbon Dioxide 27 22 Anion Gap 15 19 BUN 13 14 Creatinine 0.9 0.8 Est GFR ( Amer) > 60 > 60 Est GFR (Non-Af Amer) > 60 > 60 POC Glucose (mg/dL) 107 Random Glucose 95 93 Serum Osmolality Calcium 8.7 8.9 Magnesium Total Bilirubin AST ALT Alkaline Phosphatase NT-Pro-B Natriuret Pep Total Protein Albumin Globulin Albumin/Globulin Ratio TSH 3rd Generation Urine Color Urine Clarity Urine pH Ur Specific [place] Urine Protein Urine Glucose (UA) Urine Ketones Urine Blood Urine Nitrate Urine Bilirubin Urine Urobilinogen Ur Leukocyte Esterase Urine RBC (Auto) Urine Microscopic WBC Ur Squamous Epith Cells Urine Bacteria Urine Osmolality Ur Random Sodium Ur Random Potassium 07/14/18 12:00 WBC RBC Hgb Hct MCV MCH MCHC RDW Plt Count MPV Neut % (Auto) Lymph % (Auto) [place] % (Auto) Eos % (Auto) Baso % (Auto) Neut # (Auto) Lymph # (Auto) [place] # (Auto) Eos # (Auto) Baso # (Auto) PT INR APTT Sodium 119 L* Potassium 3.7 Chloride 83 L Carbon Dioxide 25 Anion Gap 15 BUN 12 Creatinine 0.7 Est GFR ( Amer) > 60 Est GFR (Non-Af Amer) > 60 POC Glucose (mg/dL) Random Glucose 89 Serum Osmolality Calcium 8.7 Magnesium Total Bilirubin AST ALT Alkaline Phosphatase NT-Pro-B Natriuret Pep Total Protein Albumin Globulin Albumin/Globulin Ratio TSH 3rd Generation Urine Color Urine Clarity Urine pH Ur Specific [place] Urine Protein Urine Glucose (UA) Urine Ketones Urine Blood Urine Nitrate Urine Bilirubin Urine Urobilinogen Ur Leukocyte Esterase Urine RBC (Auto) Urine Microscopic WBC Ur Squamous Epith Cells Urine Bacteria Urine Osmolality Ur Random Sodium Ur Random Potassium Assessment & Plan - Assessment and Plan (Free Text) Assessment: 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 There is no Hx/o heart dis, thyroid disorder & appears euvolemic. Bipolar Disorder. Plan: Agree with hypertonic saline. Pt has received bolus of 100 cc. Second bolus is is just started. Repeat BMP is ordered for 6 pm The rate of correction should be aimed at 12 meq/kg/hr in 24 hrs or 18 meq in 24 hrs. Neuro checks. Suggest CT scan of hesd
[2018-07-14 18:29] LABS: BLOOD UREA NITROGEN 15 mg/dl (7-17); CALCIUM 8.8 mg/dL (8.4-10.2); GFR NON-AFRICAN AMERICAN > 60
[2018-07-15 06:05] LABS: HEMOGLOBIN 11.5 g/dL (12.0-16.0); MEAN CELL VOLUME 76.1 fl (81.0-99.0); MEAN CORPUSCULAR HEMOGLOBIN 25.9 pg (27.0-31.0); MEAN CORPUSCULAR HGB CONC 34.1 g/dL (33.0-37.0); RBC 4.42 Mil/uL (3.80-5.20); RED CELL DISTRIBUTION WIDTH 16.2 % (11.5-14.5); WHITE BLOOD COUNT 3.6 K/uL (4.8-10.8)
[2018-07-15 06:13] LABS: CALCIUM 8.6 mg/dL (8.4-10.2)
[2018-07-15 06:21] LABS: B-TYPE NATRIURETIC PEPTIDE 39.2 pg/ml (0-900)
[2018-07-15] MEDS: Enoxaparin 40 mg Syringe SC SCH ×2 (08:16→08:19)
[2018-07-15] MEDS: POLYETHYLENE GLYCOL 3350 17 GM/Dose PACKET PO SCH ×2 (08:17→08:19)
--- NOTE | 2018-07-15 11:39 | CP.PCM.PN ---
<Krista Temple - Last Filed: 07/15/18 13:31> Subjective - Date & Time of Evaluation Date of Evaluation: 07/15/18 Time of Evaluation: 11:39 - Subjective Subjective: Chief Complaint: Hyponatremia The hx was obtained from the patient, the medical staff and after review of the laboratory and medical records. This is a 68 years old female with no significant past medical record, transferred from the [facility] to the [facility] for management depression. Here she was noted drinking large amounts of water and blood work was sent to the lab for electrolytes which showed Sodium of 111. Sodium level has increased. Patient denies f/n/v/sob. Patient was seen vomiting upon examination. Denies any new complains Objective - Vital Signs/Intake and Output Vital Signs (last 24 hours): Temp Pulse Resp BP Pulse Ox 97.7 F 84 18 102/65 97 07/15/18 07:57 07/15/18 09:00 07/15/18 07:57 07/15/18 07:57 07/15/18 07:57 - Medications Medications: Current Medications Enoxaparin Sodium (Lovenox) 40 mg SC DAILY [facility]; Protocol Last Admin: 07/15/18 08:19 Dose: Not Given Lactulose (Enulose) 20 gm PO BID PRN PRN Reason: Constipation Polyethylene Glycol (Miralax) 17 gm PO DAILY [facility] Last Admin: 07/15/18 08:19 Dose: Not Given Risperidone (Risperdal Tab) 0.5 mg PO BID [facility] Last Admin: 07/15/18 08:16 Dose: 0.5 mg Risperidone (Risperdal Tab) 0.5 mg PO HS [facility] Last Admin: 07/14/18 21:24 Dose: 0.5 mg Sodium Chloride (Sodium Chloride Tab) 1 gm PO DAILY [facility] Last Admin: 07/15/18 08:16 Dose: 1 gm - Labs Labs: 07/15/18 05:45 07/15/18 05:45 PT 11.3 Seconds (9.8-13.1) 07/14/18 00:45 INR 1.0 07/14/18 00:45 APTT 35.2 Seconds (25.6-37.1) 07/14/18 00:45 - Constitutional Appears: Well, Non-toxic, No Acute Distress - Head Exam Head Exam: ATRAUMATIC, NORMOCEPHALIC - Eye Exam Eye Exam: Normal appearance Pupil Exam: NORMAL ACCOMODATION - ENT Exam ENT Exam: Mucous Membranes Moist - Respiratory Exam Respiratory Exam: Clear to Ausculation Bilateral - Cardiovascular Exam Cardiovascular Exam: REGULAR RHYTHM, +S1, +S2 - Neurological Exam Neurological Exam: Alert, Normal Gait Assessment and Plan - Assessment and Plan (Free Text) Assessment: 68 y/o woman w/ pmh of bipolar disorder and depression, admitted to Psych Unit for Depression on 07/08/18. Her Sodium has decreasd to 111mMol/L after drinking large amount of water. Patient rx sodium tablets. Patients NA level todau 07/[address] of the head ordered. Plan: #. Hyponatremia secondary to Psychogenic Polydipsia - patient received Lasix 40mg IVP - Restrict water to one Liter daily - 3% Sodium Chloride - electrolytes Q4H - HbAIC -f/u head CT - Sodium tablets. - Na 127 - Physical therapy on board #.Bipolar Disorder type I - Consult Psychiatry Dr Herzog - management as per psych team - continue Psychiatric medications: risperidone #. Herpes Simplex on Buttocks - Acyclovir #. DVT prophylaxis with Lovenox #. Code Status: Full <Tiffanie Bazan - Last Filed: 07/15/18 14:33> Objective - Vital Signs/Intake and Output Vital Signs (last 24 hours): Temp Pulse Resp BP Pulse Ox 98.0 F 92 H 18 101/66 97 07/15/18 11:41 07/15/18 11:41 07/15/18 11:41 07/15/18 11:41 07/15/18 11:41 - Medications Medications: Current Medications Enoxaparin Sodium (Lovenox) 40 mg SC DAILY [facility]; Protocol Last Admin: 07/15/18 08:19 Dose: Not Given Lactulose (Enulose) 20 gm PO BID PRN PRN Reason: Constipation Polyethylene Glycol (Miralax) 17 gm PO DAILY [facility] Last Admin: 07/15/18 08:19 Dose: Not Given Risperidone (Risperdal Tab) 0.5 mg PO BID [facility] Last Admin: 07/15/18 08:16 Dose: 0.5 mg Risperidone (Risperdal Tab) 0.5 mg PO HS [facility] Last Admin: 07/14/18 21:24 Dose: 0.5 mg Sodium Chloride (Sodium Chloride Tab) 1 gm PO DAILY [facility] Last Admin: 07/15/18 08:16 Dose: 1 gm - Labs Labs: 07/15/18 05:45 07/15/18 05:45 PT 11.3 Seconds (9.8-13.1) 07/14/18 00:45 INR 1.0 07/14/18 00:45 APTT 35.2 Seconds (25.6-37.1) 07/14/18 00:45 Attending/Attestation - Attestation I have personally seen and examined this patient.: Yes I have fully participated in the care of the patient.: Yes I have reviewed all pertinent clinical information, including history, physical exam and plan: Yes Notes (Text): 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 contact dermatitis unlikely Herpes - Pt was started on 3% NAcl - Sodium slowly went up from 111 to 127 - 3% d/c - Free water restriction - antipsychotic hanged to Risperdal -Pt has erythematous pustular rashes scattered on both buttocks - she was treated in Psych with topical Acyclovir, looks like secondarily infected due to scratching - no pain but pruritic as per pt - will start with Bactroban ointment
--- NOTE | 2018-07-15 14:10 | CT ---
Date of service: 07/15/2018 PROCEDURE: CT HEAD WITHOUT CONTRAST. HISTORY: hyponatremia, Bipolar dis COMPARISON: None available. TECHNIQUE: Axial computed tomography images were obtained through the head/brain without intravenous contrast. Radiation dose: Total exam DLP = 889.81 mGy-cm. This CT exam was performed using one or more of the following dose reduction techniques: Automated exposure control, adjustment of the mA and/or kV according to patient size, and/or use of iterative reconstruction technique. FINDINGS: HEMORRHAGE: No intracranial hemorrhage. BRAIN: No mass effect or edema. No atrophy or chronic microvascular ischemic changes. VENTRICLES: Unremarkable. No hydrocephalus. CALVARIUM: Unremarkable. PARANASAL SINUSES: Unremarkable as visualized. No significant inflammatory changes. MASTOID AIR CELLS: Unremarkable as visualized. No inflammatory changes. OTHER FINDINGS: None. IMPRESSION: Normal CT of the Head. No intracranial mass, hemorrhage or evidence of acute infarct.
--- NOTE | 2018-07-15 15:01 | CP.PCM.PN ---
Subjective - Date & Time of Evaluation Date of Evaluation: 07/15/18 Time of Evaluation: 01:00 - Subjective Subjective: Pt is alert today. Oriented to self & place. Verbally communicative. State she feels better. Objective - Vital Signs/Intake and Output Vital Signs (last 24 hours): Temp Pulse Resp BP Pulse Ox 98.0 F 92 H 18 101/66 97 07/15/18 11:41 07/15/18 11:41 07/15/18 11:41 07/15/18 11:41 07/15/18 11:41 - Medications Medications: Current Medications Enoxaparin Sodium (Lovenox) 40 mg SC DAILY [facility]; Protocol Last Admin: 07/15/18 08:19 Dose: Not Given Lactulose (Enulose) 20 gm PO BID PRN PRN Reason: Constipation Mupirocin (Bactroban Cream) 1 applic TOP BID [facility] Polyethylene Glycol (Miralax) 17 gm PO DAILY [facility] Last Admin: 07/15/18 08:19 Dose: Not Given Risperidone (Risperdal Tab) 0.5 mg PO BID [facility] Last Admin: 07/15/18 08:16 Dose: 0.5 mg Risperidone (Risperdal Tab) 0.5 mg PO HS [facility] Last Admin: 07/14/18 21:24 Dose: 0.5 mg Sodium Chloride (Sodium Chloride Tab) 1 gm PO DAILY [facility] Last Admin: 07/15/18 08:16 Dose: 1 gm - Labs Labs: 07/15/18 05:45 07/15/18 05:45 PT 11.3 Seconds (9.8-13.1) 07/14/18 00:45 INR 1.0 07/14/18 00:45 APTT 35.2 Seconds (25.6-37.1) 07/14/18 00:45 - Constitutional Appears: No Acute Distress - Head Exam Head Exam: ATRAUMATIC, NORMOCEPHALIC - Eye Exam Additional comments: Conjunctivae pink - ENT Exam ENT Exam: Mucous Membranes Moist - Neck Exam Additional comments: No jugular venous distension. - Respiratory Exam Respiratory Exam: NORMAL BREATHING PATTERN Additional comments: Lungs clear - Cardiovascular Exam Cardiovascular Exam: REGULAR RHYTHM - GI/Abdominal Exam Additional comments: Soft, obese & nontender - Extremities Exam Additional comments: No pedal edema Assessment and Plan - Assessment and Plan (Free Text) Assessment: Hyponatremia Labs suggestive of SIADH which may be secondary to SSRIs Serum Sodium is improving. Hypertonic saline was stopped yesterday Currently on fluid restriction,, Salt tabs Bipolar disorder/Depression Plan: Continue with current Mx Fluid restriction. Labs in am
[2018-07-15] MEDS ORDERED: Mupirocin 2% Cream TOP SCH (17:00)
[2018-07-15] MEDS ORDERED: Mupirocin 2% Oint 1GM UD TOP SCH (20:45)
[2018-07-16 05:36] LABS: HEMOGLOBIN 11.9 g/dL (12.0-16.0); MEAN CORPUSCULAR HGB CONC 33.8 g/dL (33.0-37.0); RBC 4.58 Mil/uL (3.80-5.20); RED CELL DISTRIBUTION WIDTH 16.5 % (11.5-14.5)
[2018-07-16 05:54] LABS: BLOOD UREA NITROGEN 13 mg/dl (7-17); CALCIUM 9.2 mg/dL (8.4-10.2); GFR NON-AFRICAN AMERICAN > 60
[2018-07-16 05:56] LABS: WHITE BLOOD COUNT 5.6 K/uL (4.8-10.8)
[2018-07-16 07:45] VITALS: RESP 18
[2018-07-16] MEDS: Enoxaparin 40 mg Syringe SC SCH (08:35)
[2018-07-16] MEDS: POLYETHYLENE GLYCOL 3350 17 GM/Dose PACKET PO SCH (08:35)
--- NOTE | 2018-07-16 11:01 | CP.PCM.DIS ---
Provider - Provider Date of Admission: 07/14/18 02:31 Attending physician: Gabriele Hernandez Consults: 07/14/18 07:36 Nephrology Consult Routine Comment: Consulting Provider: Rodolfo Chaudhary Consulting Physician: Rodolfo Chaudhary Reason for Consult: hyponatremia 07/14/18 07:38 Psychiatry Consult Routine Comment: Consulting Provider: Agustina Saldaña Consulting Physician: Agustina Saldaña Reason for Consult: bipolar I disorder, now hyponatremia Time Spent in preparation of Discharge (in minutes): 30 Diagnosis - Discharge Diagnosis (1) Hyponatremia Status: Acute Hospital Course - Lab Results Lab Results: Most Recent Lab Values WBC 5.6 K/uL (4.8-10.8) D 07/16/18 04:30 RBC 4.58 Mil/uL (3.80-5.20) 07/16/18 04:30 Hgb 11.9 g/dL (12.0-16.0) L 07/16/18 04:30 Hct 35.2 % (34.0-47.0) 07/16/18 04:30 MCV 77.0 fl (81.0-99.0) L 07/16/18 04:30 MCH 26.0 pg (27.0-31.0) L 07/16/18 04:30 MCHC 33.8 g/dL (33.0-37.0) 07/16/18 04:30 RDW 16.5 % (11.5-14.5) H 07/16/18 04:30 Plt Count 236 K/uL (130-400) 07/16/18 04:30 MPV 7.8 fl (7.2-11.7) 07/14/18 00:45 Neut % (Auto) 65.8 % (50.0-75.0) 07/14/18 00:45 Lymph % (Auto) 22.2 % (20.0-40.0) 07/14/18 00:45 [place] % (Auto) 9.0 % (0.0-10.0) 07/14/18 00:45 Eos % (Auto) 2.4 % (0.0-4.0) 07/14/18 00:45 Baso % (Auto) 0.6 % (0.0-2.0) 07/14/18 00:45 Neut # (Auto) 4.4 K/uL (1.8-7.0) 07/14/18 00:45 Lymph # (Auto) 1.5 K/uL (1.0-4.3) 07/14/18 00:45 [place] # (Auto) 0.6 K/uL (0.0-0.8) 07/14/18 00:45 Eos # (Auto) 0.2 K/uL (0.0-0.7) 07/14/18 00:45 Baso # (Auto) 0.0 K/uL (0.0-0.2) 07/14/18 00:45 PT 11.3 Seconds (9.8-13.1) 07/14/18 00:45 INR 1.0 07/14/18 00:45 APTT 35.2 Seconds (25.6-37.1) 07/14/18 00:45 Sodium 132 mmol/l (132-148) 07/16/18 04:30 Potassium 3.8 MMOL/L (3.6-5.0) 07/16/18 04:30 Chloride 95 mmol/L (98-107) L 07/16/18 04:30 Carbon Dioxide 26 mmol/L (22-30) 07/16/18 04:30 Anion Gap 15 (10-20) 07/16/18 04:30 BUN 13 mg/dl (7-17) 07/16/18 04:30 Creatinine 0.8 mg/dl (0.7-1.2) 07/16/18 04:30 Est GFR ( Amer) > 60 07/16/18 04:30 Est GFR (Non-Af Amer) > 60 07/16/18 04:30 POC Glucose (mg/dL) 107 mg/dL (65-110) 07/14/18 00:45 Random Glucose 98 mg/dL (65-105) 07/16/18 04:30 Serum Osmolality 259 mosm/kg (272-300) L 07/14/18 17:03 Calcium 9.2 mg/dL (8.4-10.2) 07/16/18 04:30 Magnesium 1.7 MG/DL (1.6-2.3) 07/14/18 00:45 Total Bilirubin 0.7 mg/dl (0.2-1.3) 07/14/18 00:45 AST 36 U/L (14-36) D 07/14/18 00:45 ALT 21 U/L (9-52) 07/14/18 00:45 Alkaline Phosphatase 80 U/L (38-126) 07/14/18 00:45 NT-Pro-B Natriuret Pep 39.2 pg/ml (0-900) 07/15/18 05:45 Total Protein 7.6 G/DL (6.3-8.2) 07/14/18 00:45 Albumin 4.3 g/dL (3.5-5.0) 07/14/18 00:45 Globulin 3.3 gm/dL (2.2-3.9) 07/14/18 00:45 Albumin/Globulin Ratio 1.3 (1.0-2.1) 07/14/18 00:45 Triglycerides 118 mg/DL (0-149) D 07/15/18 05:45 Cholesterol 140 mg/dL (0-199) 07/15/18 05:45 LDL Cholesterol Direct 67 mg/dL (0-129) 07/15/18 05:45 HDL Cholesterol 45 MG/DL (30-70) 07/15/18 05:45 TSH 3rd Generation 1.88 mIU/ML (0.46-4.68) 07/14/18 00:45 Cortisol AM Sample 6.5 ug/dL (4.46-22.7) 07/15/18 05:45 Urine Color Straw (YELLOW) 07/14/18 00:45 Urine Clarity Clear (Clear) 07/14/18 00:45 Urine pH 7.0 (5.0-8.0) 07/14/18 00:45 Ur Specific [place] 1.006 (1.003-1.030) 07/14/18 00:45 Urine Protein Negative mg/dL (NEGATIVE) 07/14/18 00:45 Urine Glucose (UA) Neg mg/dL (NEGATIVE) 07/14/18 00:45 Urine Ketones Negative mg/dL (NEGATIVE) 07/14/18 00:45 Urine Blood Moderate (NEGATIVE) 07/14/18 00:45 Urine Nitrate Negative (NEGATIVE) 07/14/18 00:45 Urine Bilirubin Negative (NEGATIVE) 07/14/18 00:45 Urine Urobilinogen 0.2-1.0 mg/dL (0.2-1.0) 07/14/18 00:45 Ur Leukocyte Esterase Mod [place]/uL (Negative) 07/14/18 00:45 Urine RBC (Auto) 3 /hpf (0-3) 07/14/18 00:45 Urine Microscopic WBC 6 /hpf (0-5) H 07/14/18 00:45 Ur Squamous Epith Cells < 1 /hpf (0-5) 07/14/18 00:45 Urine Bacteria Mod (<OCC) H 07/14/18 00:45 Urine Osmolality 329 mosm/kg (300-1000) 07/14/18 22:30 Ur Random Sodium < 5 mmol/L 07/14/18 22:30 Ur Random Potassium 20.7 mmol/L 07/14/18 00:45 - Hospital Course Hospital Course: 68 y/o woman w/ pmh of bipolar disorder and depression, admitted to Psych Unit for Depression on 07/08/18. Her Sodium has decreasd to 111mMol/L after drinking large amount of water. Patient rx sodium tablets. Patients NA level today 07/[address] of the head ordered and WNL. Patients Na level WNL today 07/16. Urinary tract infection(moderate bacteria in urine), continue bactrim for three more days. Patient to be transferred to psych. Please continue strict fluid restriction( 1 L) Discharge Exam - Head Exam Head Exam: ATRAUMATIC, NORMOCEPHALIC - Eye Exam Eye Exam: Normal appearance Pupil Exam: NORMAL ACCOMODATION - ENT Exam ENT Exam: Mucous Membranes Moist - Respiratory Exam Respiratory Exam: NORMAL BREATHING PATTERN - Cardiovascular Exam Cardiovascular Exam: REGULAR RHYTHM, +S1, +S2 - GI/Abdominal Exam GI & Abdominal Exam: Normal Bowel Sounds - Exam Exam: NORMAL INSPECTION - Neurological Exam Neurological exam: Alert - Psychiatric Exam Psychiatric exam: Normal Affect - Skin Skin Exam: Normal Color Discharge Plan - Follow Up Plan Condition: FAIR Disposition: DISCHARGE TO PSYCH HOSPITAL
[2018-07-16 12:00] VITALS: PULSE 114; TEMP 98.1; O2SAT 94
--- NOTE | 2018-07-16 12:24 | CP.PCM.PN ---
Subjective - Date & Time of Evaluation Date of Evaluation: 07/16/18 Time of Evaluation: 11:55 - Subjective Subjective: Pt is aler. Ambulating well. Appears anxious. Objective - Vital Signs/Intake and Output Vital Signs (last 24 hours): Temp Pulse Resp BP Pulse Ox 98.1 F 114 H 18 169/84 H 94 L 07/16/18 12:00 07/16/18 12:00 07/16/18 12:00 07/16/18 12:00 07/16/18 12:00 - Medications Medications: Current Medications Enoxaparin Sodium (Lovenox) 40 mg SC DAILY [facility]; Protocol Last Admin: 07/16/18 08:35 Dose: Not Given Lactulose (Enulose) 20 gm PO BID PRN PRN Reason: Constipation Mupirocin (Bactroban Ointment) 1 applic TOP BID [facility] Last Admin: 07/16/18 08:35 Dose: 1 applic Polyethylene Glycol (Miralax) 17 gm PO DAILY [facility] Last Admin: 07/16/18 08:35 Dose: Not Given Risperidone (Risperdal Tab) 0.5 mg PO BID [facility] Last Admin: 07/16/18 08:35 Dose: 0.5 mg Risperidone (Risperdal Tab) 0.5 mg PO HS [facility] Last Admin: 07/15/18 21:38 Dose: 0.5 mg Sodium Chloride (Sodium Chloride Tab) 1 gm PO DAILY [facility] Last Admin: 07/15/18 08:16 Dose: 1 gm - Labs Labs: 07/16/18 04:30 07/16/18 04:30 PT 11.3 Seconds (9.8-13.1) 07/14/18 00:45 INR 1.0 07/14/18 00:45 APTT 35.2 Seconds (25.6-37.1) 07/14/18 00:45 - Constitutional Appears: No Acute Distress - Eye Exam Eye Exam: Normal appearance - ENT Exam ENT Exam: Mucous Membranes Moist - Neck Exam Additional comments: JVD negative - Respiratory Exam Respiratory Exam: NORMAL BREATHING PATTERN Additional comments: Lungs clear - Cardiovascular Exam Cardiovascular Exam: REGULAR RHYTHM - Extremities Exam Additional comments: No edema Assessment and Plan - Assessment and Plan (Free Text) Assessment: Nyponatremia corrected SIADH Blood pressures are high. No hx/o HTN. Suggest to decrease dose of salt tablets Lasix one dose today. Plan: Continue fluid restriction Lasix 40 mg po x1 dose
[2018-07-16 15:31] VITALS: BP 160/90
--- NOTE | 2018-07-16 18:00 | PQF ---
PROVIDER RESPONSE TEXT: Hyponatremia most likely SIADH REVIEWER QUERY TEXT: Clarification of Clinical Diagnostic Findings Please clarify if SIADH is ruled in or ruled out? 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
== END 2018-07-16 14:29 | DRG 644 ==
LOC: H.ER 23:26 → H.ERHOLD 07-14 02:31 → H.TEL 07-14 11:05
PROVIDERS: ADMIT Internal Medicine; ATTEND Internal Medicine
DX: E22.2 Syndrome of inappropriate secretion of antidiuretic hormone (principal); F05 Delirium due to known physiological condition; N39.0 Urinary tract infection, site not specified; F31.9 Bipolar disorder, unspecified; T42.1X5A Adverse effect of iminostilbenes, initial encounter; R63.1 Polydipsia; L25.9 Unspecified contact dermatitis, unspecified cause; R03.0 Elevated blood-pressure reading, without diagnosis of hypertension; Z87.891 Personal history of nicotine dependence; Z86.010 Personal history of colon polyps; Z87.01 Personal history of pneumonia (recurrent)

== ENCOUNTER 2018-07-16 12:32 | Inpatient (IN) | payer MEDICARE, OTHER ==
[2018-07-16] MEDS ORDERED: Bismuth Subsalicylate 262 mg/15 ml Sus (240 ml) PO PRN (15:19)
[2018-07-16] MEDS ORDERED: Magnesium Hydroxide Susp 30 ml UD PO PRN (15:19)
[2018-07-16] MEDS ORDERED: Alum-Mag Hydrox-Simethicone Susp (30 mL) PO PRN (15:19)
[2018-07-16] MEDS ORDERED: Mupirocin 2% Oint 1GM UD TOP SCH (17:00)
--- NOTE | 2018-07-16 17:28 | PCM.BM ---
<Awa Kernse E - Last Filed: 07/16/18 17:25> Treatment Plan Problems - Problems identified on initial assessmt Agitated/Aggressive Behavior Date Initiated: 07/16/18 Time Initiated: 17:26 Assessment reference: HP, NA Status: Active Priority: 1 Problem 2 Date Initiated: 07/16/18 Time Initiated: 17:29 Assessment reference: HP, NA Status: Active Altered Thought Process Date Initiated: 07/16/18 Time Initiated: 17:30 Assessment reference: HP, NA Status: Active Treatment assets and liabiliti Patient Assests: cooperative, negotiates basic needs Patient Liabilities: medical problems - Milieu Protocol Maintain good personal hygiene: daily Encourage regular showers, daily Remind patient to perform daily oral care, daily Assist patient to perform ADL's Conduct patient checks and document Observation sheet: Q15 minutes Maintain personal safety: every shift Educate patient to report safety concerns to staff, every shift Monitor environment for contraband/sharps Medication safety: Monitor for expected outcome, potential side effects: every shift, Assess barriers to learning: every shift, Assess readiness for medication education: every shift <Esthela Vargas - Last Filed: 07/17/18 08:35> - Diagnosis (1) Bipolar I disorder Status: Acute Interventions: Medication management, Individual and group therapy, Psychoeducation 07/17/18 08:35 <Opal Matos M - Last Filed: 07/17/18 15:19> Family Contact Family involvement: Family/SO is involved Family contact: Patient agrees to contact, Family has been contacted by patient, Telephone contact initiated by staff Family contact name: Wendy Family contacted how many times per week?: 2 - Outside Agency Dr. Robi De La Rosa MD Care involvment: Information-sharing Agency contact number: [phone] - Goals for Treatment Patient goals for treatment: Pt will improve overall symptoms. Pt will develop strategies for thought distrction when ruminating on the past. Pt will reduce anxiety and improve coping skills. Pt will comply with prescribed medications. Pt will attend clinical and activity groups. Pt will improve appetite and sleep pattern. Discharge/Continuing Care - Education Needs Education Needs: Family Medication, Family Diagnosis/Disease Process, Family Coping Skills, Family Placement options, Family Community resources, Family Nutrition, Family Health Practices/Safety, Family Personal Hygiene/Grooming, Family Aftercare Safety Plan, Patient Medication, Patient Diagnosis/Disease Process, Patient Coping Skills, Patient Placement options, Patient Community resources, Patient Nutrition, Patient Health Practices/Safety, Patient Personal Hygiene/Grooming, Patient Aftercare Safety Plan - Discharge Discharge Criteria: Tolerates medication w/o severe side effects, Free of paranoid thoughts, Free of agitation, Normal sleep pattern, Ability to care for self, Reduction of target symptoms Discharge to:: Home, Custodial, With Family - Additional Comments 07/17/18 15:06 Pt seen and discussed in team meeting. Reason for re-admission reviewed and discussed. Pt continues to present with grandiose, believes that she can resurrect animals. Pt reported that she has resurrected a in the past. Pt presents with pressured and loud speech. Pt reported that she does not have a psychiatric diagnosis. Pt denied being diagnosed with bipolar. Neuropsych testing conducted by Dr. Nedra Curran, Ph.D and pt refused to accept that she has some cognitive deficits. Attending psychiatrist reviewed testing results and current medication regimen with pt. Pt verbalized agreement to medication regimen. Pt's social and medical issues reviewed. Pt provided information writer with verbal and written consent form for daughter, Phyllis and son, Raymundo. Tx plan reviewed and discussed. SW will continue to follow case. - Treatment Team Participation Discussed with Family/SO: No
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
--- NOTE | 2018-07-17 08:40 | PCM.PSYCH ---
Initial Psychiatric Evaluation - Initial Psychiatric Evaluation Type of Admission: Voluntary Legal Status: Capacity Chief Complaint (in patient's own words): Acute psychosis/erick Patient's Reaction to Hospitalization: HPI: 68 yo female w/ h/o bipolar disorder, poor compliance with treatment and medications, recently admitted to [facility], then transferred to medicine for severe hyponatremia secondary to psychogenic polydipsia and possibly due to treatment w/ trileptal (now discontinued), now admitted back to the geriatric psychiatry unit for continued erick, mood lability, bizarre/erratic behavior and delusional beliefs that she can resurrect animals. She denies acute SI/HI. 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; Hyponatremia; Colonic Polyp PSH: Anal Fistule repair SH: Former smoker; no alcohol nor drug use; lives alone Allergies: NKDA Current Medications: Active Medications Generic Name Dose Route Start Last Admin Trade Name Freq PRN Reason Stop Dose Admin Acetaminophen 650 mg 07/16/18 15:19 Tylenol 325mg Tab PO Q4 PRN Pain, moderate (4-7) Al Hydrox/Mg Hydrox/Simethicone 30 ml 07/16/18 15:19 Maalox Plus 30 Ml PO Q4 PRN Dyspepsia Bismuth Subsalicylate 524 mg 07/16/18 15:19 Pepto-Bismol PO Q4 PRN Diarrhea Lorazepam 0.5 mg 07/16/18 15:19 07/16/18 16:30 Ativan PO 07/30/18 15:20 0.5 mg Q6 PRN Administration Anixety/Agitation Lorazepam 0.5 mg 07/16/18 15:22 Ativan PO HS PRN Insomnia Magnesium Hydroxide 30 ml 07/16/18 15:19 Milk Of Magnesia PO HS PRN Constipation Risperidone 2 mg 07/16/18 21:00 07/17/18 08:34 Risperdal Tab PO 2 mg Q12 GREGORIO Administration Past Psychiatric History - Past Psychiatric History Previous Treatment History: Inpatient Pertinent Medical Hx (Current Medical&Sleep Prob, Allergies): Allergies Allergy/AdvReac Type Severity Reaction Status Date / Time No Known Allergies Allergy Verified 07/07/18 14:38 Polyethylene Glycol 3350 [Miralax] 17 gm PO DAILY 02/28/16 Mupirocin 2% Oint UD [Bactroban Ointment] 1 applic TOP BID ea 07/16/18 Sodium Chloride [Sodium Chloride Tab] 1 gm PO 07/16/18 risperiDONE [RisperDAL Tab] 0.5 mg PO BID tab 07/16/18 risperiDONE [RisperDAL Tab] 0.5 mg PO HS tab 07/16/18 Review of Systems - Psychiatric Psychiatric: As Per HPI, Abnormal Sleep Pattern, Anxiety, Behavioral Changes, Ch alexis in Appetite, Difficulty Concentrating, Irritability, Mood Swings, Other (+Delusions) Mental Status Examination - Personal Presentation Personal Presentation: Looks stated age - Affect Affect: Other (Labile) - Motor Activity Motor Activity: Psychomotor Agitation - Reliability in Providing Information Reliability in Providing Information: Poor, due to cognitve impairment - Speech Speech: Tangential - Mood Mood: Euphoric - Formal Thought Process Formal Thought Process: Delusions, Loosening of associations - Obsessions/Compulsions Obsessions: No Compulsions: No - Cognitive Functions Orientation: Person, Place, Situation, Time Sensorium: Alert Estimate of Intelligence: Average Judgement: Imparied, as evidence by: Lack of insight into illness - Risk Risk: Diminished functioning - Strength & Assets Inventory Strength & Assets Inventory: Family support, Cooperative - Limitations Limitations: Living alone, Decreased memory, recent DSM 5 DX - DSM 5 DSM 5 Diagnosis: Bipolar Disorder - Recommended/Plan of Treatment Treatment Recommendations and Plan of Treatment: Bipolar Disorder -Admit to psychiatry unit -Individual and group therapy -Psychoeducation -Increase Risperdal -Fluid Restriction -Medicine consult -Disposition planning Projected ELOS: 7-10 days Discharge Plan and Discharge Criteria: Discharge when patient is psychiatrically stable - Smoking Cessation Smoking Cessation Initiated: No Reason for not providing: Not indicated
[2018-07-17] MEDS ORDERED: POLYETHYLENE GLYCOL 3350 17 GM/Dose PACKET PO SCH (09:00)
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
[2018-07-18 07:28] LABS: HEMOGLOBIN 12.5 g/dL (12.0-16.0); MEAN CELL VOLUME 78.4 fl (81.0-99.0); MEAN CORPUSCULAR HGB CONC 33.2 g/dL (33.0-37.0); RBC 4.81 Mil/uL (3.80-5.20); RED CELL DISTRIBUTION WIDTH 16.4 % (11.5-14.5); WHITE BLOOD COUNT 6.5 K/uL (4.8-10.8)
[2018-07-18 08:12] LABS: ALB/GLOB RATIO 1.2 (1.0-2.1); ALBUMIN 4.1 g/dL (3.5-5.0); ALT/SGPT 22 U/L (9-52); AST/SGOT 28 U/L (14-36); BLOOD UREA NITROGEN 16 mg/dl (7-17); CALCIUM 9.3 mg/dL (8.4-10.2); GFR NON-AFRICAN AMERICAN > 60
--- NOTE | 2018-07-18 11:09 | PCM.PYCHPN ---
Psychiatric Progress Note - Psychiatric Progress Note Patient seen today, length of contact: pt evaluated discussed with team chart reviewed Patient Chief Complaint: I am fine Problems Identified/Issues Discussed: pt seen in bed, anxious mood , irritable affect, under productive speech with poor eye contact, denied changes in sleep or appetite, pt denied command hallucinations, denied suicidal or homicidal ideation DSM 5 Symptoms Update: schizoaffective disorder Medication Change: No Medical Record Reviewed: Yes Mental Status Examination - Cognitive Function Orientation: Person, Place, Situation, Time Attention: WNL Concentration: Poor Association: WNL Decription of patient's judgement and insights: poor insight and judgment - Mood Mood: Anxious, Euphoric - Affect Affect: Other (Labile) Additional comments: labile, irritable - Speech Speech: Loud Additional comments: under productive - Formal Thought Process Formal Thought Process: Delusions, Loosening of associations - Suicidal Ideation Suicidal Ideation: No - Homicidal Ideation Homicidal Ideation: No Goal/Treatment Plan - Goal/Treatment Plan Need for Continued Stay: Severe depression anxiety, Discharge may exacerbated symptoms Progress Toward Problem(s) and Goals/Treatment Plan: continue with risperidone continue with fluid restriction Na level noted 134 group and supportive therapy
--- NOTE | 2018-07-19 12:26 | PCM.PYCHPN ---
Psychiatric Progress Note - Psychiatric Progress Note Patient seen today, length of contact: pt evaluated discussed with team chart reviewed Patient Chief Complaint: I am alright Problems Identified/Issues Discussed: pt seen in bed, guarded and uncooperative, anxious mood , irritable affect, under productive speech with poor eye contact, denied changes in sleep or appetite, pt denied command hallucinations, denied suicidal or homicidal ideation DSM 5 Symptoms Update: schizoaffective disorder Medication Change: No Medical Record Reviewed: Yes Mental Status Examination - Cognitive Function Orientation: Person, Place, Situation, Time Attention: WNL Concentration: Poor Association: WNL Decription of patient's judgement and insights: poor insight and judgment - Mood Mood: Anxious, Euphoric - Affect Affect: Other (Labile) - Speech Speech: Loud - Formal Thought Process Formal Thought Process: Delusions, Loosening of associations - Suicidal Ideation Suicidal Ideation: No - Homicidal Ideation Homicidal Ideation: No Goal/Treatment Plan - Goal/Treatment Plan Need for Continued Stay: Severe depression anxiety, Discharge may exacerbated symptoms Progress Toward Problem(s) and Goals/Treatment Plan: continue with risperidone continue with fluid restriction Na level noted 134 group and supportive therapy
--- NOTE | 2018-07-20 09:19 | PCM.PYCHPN ---
Psychiatric Progress Note - Psychiatric Progress Note Patient seen today, length of contact: Pt evaluated, case discussed w/ team, chart reviewed Patient Chief Complaint: Acute erick Problems Identified/Issues Discussed: Patient continues to be labile, difficult to direct at times, euphoric, pacing the unit. She denies acute psychosis, denies acute AH/VH/paranoia/ability to resurrect animals. Patient has to be directed not to drink excess water. She is agreeable to treatment with Risperdal consta at this time. Patient has a history of poor compliance with treatment and medications. Medication Change: Yes (Start Risperdal Consta) Medical Record Reviewed: Yes Consults ordered or reviewed: Medicine consult, Psychology consult Mental Status Examination - Cognitive Function Orientation: Person, Place, Situation, Time Memory: Impaired - Mood Mood: Euphoric - Affect Affect: Other (Labile) - Speech Speech: Loud - Formal Thought Process Formal Thought Process: Loosening of associations Psychotic Thoughts and Behaviors: Denies acute AH/VH/paranoia/delusions - Suicidal Ideation Suicidal Ideation: No - Homicidal Ideation Homicidal Ideation: No Goal/Treatment Plan - Goal/Treatment Plan Need for Continued Stay: Severe depression anxiety, Discharge may exacerbated symptoms Progress Toward Problem(s) and Goals/Treatment Plan: Bipolar Disorder w/ Psychotic Features -Individual and group therapy -Psychoeducation -Continue Risperdal PO -Start Risperdal Consta 25 mg IM -Fluid Restriction -Medicine consult -Disposition planning
[2018-07-21] MEDS ORDERED: risperiDONE Consta 25mg/2ml Syringe IM ONE (09:00)
--- NOTE | 2018-07-21 10:34 | PCM.PYCHPN ---
Psychiatric Progress Note - Psychiatric Progress Note Patient seen today, length of contact: Pt evaluated, case discussed w/ team, chart reviewed Patient Chief Complaint: Delusions Problems Identified/Issues Discussed: Patient is less labile. She continues to pace on the unit but is redirectable. She took the Risperdal Consta injection this morning. She denies acute AH/VH/paranoia. She continues to believe she can resurrect animals. No violence or aggression. Medication Change: Yes (Start Risperdal Consta 25 mg IM today) Medical Record Reviewed: Yes Consults ordered or reviewed: Medicine consult, Psychology consult Mental Status Examination - Cognitive Function Orientation: Person, Place, Situation, Time Memory: Impaired Decription of patient's judgement and insights: Chronic limitations in insight and judgment - Mood Mood: Neutral - Affect Affect: Other (Labile) - Speech Speech: Loud - Formal Thought Process Formal Thought Process: Loosening of associations Psychotic Thoughts and Behaviors: Denies acute AH/VH/paranoia/delusions - Suicidal Ideation Suicidal Ideation: No - Homicidal Ideation Homicidal Ideation: No Goal/Treatment Plan - Goal/Treatment Plan Need for Continued Stay: Severe depression anxiety, Discharge may exacerbated symptoms Progress Toward Problem(s) and Goals/Treatment Plan: Bipolar Disorder w/ Psychotic Features -Individual and group therapy -Psychoeducation -Continue Risperdal PO -Risperdal Consta 25 mg IM given on 07/21/18 -Fluid Restriction -Medicine consult -Disposition planning- SW to meet with family tomorrow to discuss disposition planning
[2018-07-22 06:48] LABS: BASO % 0.5 % (0.0-2.0); EOS # 0.1 K/uL (0.0-0.7); EOS % 1.4 % (0.0-4.0); HEMOGLOBIN 11.8 g/dL (12.0-16.0); LYMPH # 2.2 K/uL (1.0-4.3); LYMPH % 32.1 % (20.0-40.0); MEAN CELL VOLUME 78.8 fl (81.0-99.0); MEAN CORPUSCULAR HEMOGLOBIN 25.9 pg (27.0-31.0); MEAN CORPUSCULAR HGB CONC 32.9 g/dL (33.0-37.0); MEAN PLATELET VOLUME 7.5 fl (7.2-11.7); MONO # 0.4 K/uL (0.0-0.8); MONO % 6.1 % (0.0-10.0); NEUT # 4.1 K/uL (1.8-7.0); NEUT % 59.9 % (50.0-75.0); RBC 4.57 Mil/uL (3.80-5.20); RED CELL DISTRIBUTION WIDTH 16.2 % (11.5-14.5); WHITE BLOOD COUNT 6.8 K/uL (4.8-10.8)
[2018-07-22 06:55] LABS: ALB/GLOB RATIO 1.1 (1.0-2.1); ALBUMIN 3.8 g/dL (3.5-5.0); ALT/SGPT 25 U/L (9-52); AST/SGOT 16 U/L (14-36); BLOOD UREA NITROGEN 20 mg/dl (7-17); GFR NON-AFRICAN AMERICAN 55
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
--- NOTE | 2018-07-22 10:19 | PCM.PYCHPN ---
Psychiatric Progress Note - Psychiatric Progress Note Patient seen today, length of contact: Pt evaluated, case discussed w/ team, chart reviewed Patient Chief Complaint: Delusions Problems Identified/Issues Discussed: Patient continues to pace the unit. She continues to need redirection. She yells at times. No acute violence or aggression. She continues to have delusional beliefs that she can resurrect the . She denies acute AH/VH. She received the Risperdal Consta injection yesterday. Shipping Support met with patient's son and daughter w/ SW (SF). Shipping Support provided psychoeducation on the patient's current medical treatment and psychotropic medications. Risks/benefits of treatment with Rispedal reviewed. Patient's family explained her long history of mental illness and report that she has had chronic delusions that she can resurrect the . Patient's family believes the patient will need long wall shear operator placement at this time due to the patient's inability to care for herself. Medication Change: No Medical Record Reviewed: Yes Consults ordered or reviewed: Medicine consult, Psychology consult, [employer] INSTRUMENTS TUBE BENDER consult Mental Status Examination - Cognitive Function Orientation: Person, Place, Situation, Time Memory: Impaired Decription of patient's judgement and insights: Chronic limitations in insight and judgment - Mood Mood: Neutral - Affect Affect: Other (Labile) - Speech Speech: Loud - Formal Thought Process Formal Thought Process: Delusions, Loosening of associations Psychotic Thoughts and Behaviors: +Delusion that she can resurrect the - Suicidal Ideation Suicidal Ideation: No - Homicidal Ideation Homicidal Ideation: No Goal/Treatment Plan - Goal/Treatment Plan Need for Continued Stay: Severe depression anxiety, Discharge may exacerbated symptoms Progress Toward Problem(s) and Goals/Treatment Plan: Bipolar Disorder w/ Psychotic Features -Individual and group therapy -Psychoeducation -Continue Risperdal PO -Risperdal Consta 25 mg IM given on 07/21/18 -Fluid Restriction -Medicine consult -Disposition planning- case discussed w/ patient's family
--- NOTE | 2018-07-22 17:20 | CP.PCM.PN ---
<Stella Miranda Precious - Last Filed: 07/22/18 17:18> Subjective - Date & Time of Evaluation Date of Evaluation: 07/22/18 Time of Evaluation: 16:50 - Subjective Subjective: f/u Hyponatremia 68 y/o woman w/ pmh of bipolar disorder and depression, admitted to Psych Unit for Depression and bipolar disorder being follow for hyponatremia. Objective - Vital Signs/Intake and Output Vital Signs (last 24 hours): Temp Pulse Resp BP Pulse Ox 97.7 F 87 20 133/83 07/22/18 16:06 07/22/18 16:06 07/22/18 16:06 07/22/18 16:06 Intake and Output: 07/22/18 07/22/18 06:59 18:59 Intake Total 120 900 Balance 120 900 - Medications Medications: Current Medications Acetaminophen (Tylenol 325mg Tab) 650 mg PO Q4 PRN PRN Reason: Pain, moderate (4-7) Al Hydrox/Mg Hydrox/Simethicone (Maalox Plus 30 Ml) 30 ml PO Q4 PRN PRN Reason: Dyspepsia Bismuth Subsalicylate (Pepto-Bismol) 524 mg PO Q4 PRN PRN Reason: Diarrhea Lorazepam (Ativan) 0.5 mg PO Q6 PRN PRN Reason: Anixety/Agitation Stop: 07/30/18 15:20 Last Admin: 07/16/18 16:30 Dose: 0.5 mg Lorazepam (Ativan) 0.5 mg PO HS PRN PRN Reason: Insomnia Last Admin: 07/22/18 00:05 Dose: 0.5 mg Magnesium Hydroxide (Milk Of Magnesia) 30 ml PO HS PRN PRN Reason: Constipation Risperidone (Risperdal Tab) 2 mg PO Q12 GREGORIO Last Admin: 07/22/18 08:04 Dose: 2 mg - Labs Labs: 07/22/18 06:00 07/22/18 06:00 - Constitutional Appears: Non-toxic, No Acute Distress - Eye Exam Eye Exam: Normal appearance - ENT Exam ENT Exam: Mucous Membranes Moist - Respiratory Exam Respiratory Exam: Clear to Ausculation Bilateral, NORMAL BREATHING PATTERN - Cardiovascular Exam Cardiovascular Exam: REGULAR RHYTHM, +S1, +S2 - GI/Abdominal Exam GI & Abdominal Exam: Soft, Normal Bowel Sounds. absent: Guarding, Rigid, Tenderness - Extremities Exam Extremities Exam: Normal Inspection. absent: Calf Tenderness, Pedal Edema - Back Exam Back Exam: NORMAL INSPECTION. absent: CVA tenderness (L), CVA tenderness (R) - Neurological Exam Neurological Exam: Alert Assessment and Plan (1) Hyponatremia Status: Acute - Assessment and Plan (Free Text) Plan: Resolved Noted slightly increased in creatinine from 0.9 to 1.0 DC 800 ml /daily fluid restriction start 1000 ml/daily fluid restriction f/u electrolytes and renal function <Jennifer Walker - Last Filed: 07/23/18 15:06> Objective - Vital Signs/Intake and Output Vital Signs (last 24 hours): Temp Pulse Resp BP Pulse Ox 97.1 F L 83 18 107/71 07/23/18 06:00 07/23/18 06:00 07/23/18 06:00 07/23/18 06:00 Intake and Output: 07/23/18 07/23/18 06:59 18:59 Intake Total 100 Balance 100 - Medications Medications: Current Medications Acetaminophen (Tylenol 325mg Tab) 650 mg PO Q4 PRN PRN Reason: Pain, moderate (4-7) Al Hydrox/Mg Hydrox/Simethicone (Maalox Plus 30 Ml) 30 ml PO Q4 PRN PRN Reason: Dyspepsia Bismuth Subsalicylate (Pepto-Bismol) 524 mg PO Q4 PRN PRN Reason: Diarrhea Lorazepam (Ativan) 0.5 mg PO Q6 PRN PRN Reason: Anixety/Agitation Stop: 07/30/18 15:20 Last Admin: 07/16/18 16:30 Dose: 0.5 mg Lorazepam (Ativan) 0.5 mg PO HS PRN PRN Reason: Insomnia Last Admin: 07/22/18 21:45 Dose: 0.5 mg Magnesium Hydroxide (Milk Of Magnesia) 30 ml PO HS PRN PRN Reason: Constipation Risperidone (Risperdal Tab) 2 mg PO Q12 GREGORIO Last Admin: 07/23/18 08:53 Dose: 2 mg - Labs Labs: 07/22/18 06:00 07/22/18 06:00 Attending/Attestation - Attestation I have personally seen and examined this patient.: Yes I have fully participated in the care of the patient.: Yes I have reviewed all pertinent clinical information, including history, physical exam and plan: Yes Notes (Text): 07/23/18 15:06 Agree with findings and plan as above.
--- NOTE | 2018-07-23 08:30 | PCM.PYCHPN ---
Psychiatric Progress Note - Psychiatric Progress Note Patient seen today, length of contact: Pt evaluated, case discussed w/ team, chart reviewed Patient Chief Complaint: Delusions Problems Identified/Issues Discussed: Patient continues to need redirection. She continues to have psychomotor agitation at times. She has poor insight/judgment. She continues to have delusional beliefs that she can resurrect the . She denies acute AH/VH. She received the Risperdal Consta injection on 07/21/18. Team working w/ family to discuss disposition planning as patient is not safe to return home at this time due to inability to care for self. Medication Change: No Medical Record Reviewed: Yes Consults ordered or reviewed: Medicine consult, Psychology consult, ASSEMBLER ARRANGER consult Mental Status Examination - Cognitive Function Orientation: Person, Place, Situation, Time Memory: Impaired Attention: Poor Decription of patient's judgement and insights: Chronic limitations in insight and judgment - Mood Mood: Neutral - Affect Affect: Other (Labile) - Speech Speech: Loud - Formal Thought Process Formal Thought Process: Delusions, Loosening of associations Psychotic Thoughts and Behaviors: +Delusion that she can resurrect the - Suicidal Ideation Suicidal Ideation: No - Homicidal Ideation Homicidal Ideation: No Goal/Treatment Plan - Goal/Treatment Plan Need for Continued Stay: Severe depression anxiety, Discharge may exacerbated symptoms Progress Toward Problem(s) and Goals/Treatment Plan: Bipolar Disorder w/ Psychotic Features -Individual and group therapy -Psychoeducation -Continue Risperdal PO -Risperdal Consta 25 mg IM given on 07/21/18 -Fluid Restriction -Medicine consult -ASSEMBLER ARRANGER consult -Disposition planning- case discussed w/ patient's family
[2018-07-23] MEDS ORDERED: Gadodiamide 287 MG/ML VIAL (15ML) IV ONE (16:03)
[2018-07-24 06:21] LABS: BLOOD UREA NITROGEN 21 mg/dl (7-17); CALCIUM 9.5 mg/dL (8.4-10.2); GFR NON-AFRICAN AMERICAN 55
--- NOTE | 2018-07-24 08:20 | PCM.PYCHPN ---
Psychiatric Progress Note - Psychiatric Progress Note Patient seen today, length of contact: Pt evaluated, case discussed w/ team, chart reviewed Patient Chief Complaint: Delusions Problems Identified/Issues Discussed: Patient continues to have poor insight/judgment and needs direction to take care of herself. She continues to have delusional beliefs that she can resurrect the . She denies acute AH/VH. She received the Risperdal Consta injection on 07/21/18. Patient will likely need usp placement as she is not able to care for herself at this time. Medication Change: No Medical Record Reviewed: Yes Consults ordered or reviewed: Medicine consult, Psychology consult, OBSTETRICS GYNECOLOGY MD consult Mental Status Examination - Cognitive Function Orientation: Person, Place, Situation, Time Memory: Impaired Attention: Poor Decription of patient's judgement and insights: Chronic limitations in insight and judgment - Mood Mood: Neutral - Affect Affect: Other (Labile) - Speech Speech: Loud - Formal Thought Process Formal Thought Process: Delusions, Loosening of associations Psychotic Thoughts and Behaviors: +Delusion that she can resurrect the - Suicidal Ideation Suicidal Ideation: No - Homicidal Ideation Homicidal Ideation: No Goal/Treatment Plan - Goal/Treatment Plan Need for Continued Stay: Severe depression anxiety, Discharge may exacerbated symptoms Progress Toward Problem(s) and Goals/Treatment Plan: Bipolar Disorder w/ Psychotic Features -Individual and group therapy -Psychoeducation -Continue Risperdal PO -Risperdal Consta 25 mg IM given on 07/21/18 -Fluid Restriction -Medicine consult -OBSTETRICS GYNECOLOGY MD consult -Disposition planning- case discussed w/ patient's family
--- NOTE | 2018-07-24 14:57 | PCM.BM ---
Treatment Plan Problems - Problems identified on initial assessmt Problem 2 Date Initiated: 07/16/18 Time Initiated: 17:29 Assessment reference: HP, NA Status: Active Agitated/Aggressive Behavior Date Initiated: 07/16/18 Time Initiated: 17:26 Assessment reference: HP, NA Status: Active Priority: 1 Altered Thought Process Date Initiated: 07/16/18 Time Initiated: 17:30 Assessment reference: HP, NA Status: Active Treatment assets and liabiliti Patient Assests: cooperative, negotiates basic needs Patient Liabilities: medical problems - Milieu Protocol Maintain good personal hygiene: daily Encourage regular showers, daily Remind patient to perform daily oral care, daily Assist patient to perform ADL's Conduct patient checks and document Observation sheet: Q15 minutes Maintain personal safety: every shift Educate patient to report safety concerns to staff, every shift Monitor environment for contraband/sharps Medication safety: Monitor for expected outcome, potential side effects: every shift, Assess barriers to learning: every shift, Assess readiness for medication education: every shift Milieu Narrative: Bipolar Disorder w/ Psychotic Features -Individual and group therapy -Psychoeducation -Continue Risperdal PO -Risperdal Consta 25 mg IM given on 07/21/18 -Fluid Restriction -Medicine consult -UTILIZATION MANAGEMENT RN consult -Disposition planning- case discussed w/ patient's family Family Contact Family involvement: Family/SO is involved Family contact: Patient agrees to contact, Family has been contacted by patient, Telephone contact initiated by staff Family contact name: Wendy Family contacted how many times per week?: 2 - Outside Agency Dr. Robi De La Rosa MD Care involent: Information-sharing Agency contact number: [phone] - Goals for Treatment Patient goals for treatment: Pt will improve overall symptoms. Pt will develop strategies for thought distrction when ruminating on the past. Pt will reduce anxiety and improve coping skills. Pt will comply with prescribed medications. Pt will attend clinical and activity groups. Pt will improve appetite and sleep pattern. Discharge/Continuing Care - Education Needs Education Needs: Family Medication, Family Diagnosis/Disease Process, Family Coping Skills, Family Placement options, Family Community resources, Family Nutrition, Family Health Practices/Safety, Family Personal Hygiene/Grooming, Family Aftercare Safety Plan, Patient Medication, Patient Diagnosis/Disease Process, Patient Coping Skills, Patient Placement options, Patient Community resources, Patient Nutrition, Patient Health Practices/Safety, Patient Personal Hygiene/Grooming, Patient Aftercare Safety Plan - Discharge Discharge Criteria: Tolerates medication w/o severe side effects, Free of paranoid thoughts, Free of agitation, Normal sleep pattern, Ability to care for self, Reduction of target symptoms Discharge to:: Home, Snf, With Family - Additional Comments 07/17/18 15:06 Pt seen and discussed in team meeting. Reason for re-admission reviewed and discussed. Pt continues to present with grandiose, believes that she can resurrect animals. Pt reported that she has resurrected a in the past. Pt presents with pressured and loud speech. Pt reported that she does not have a psychiatric diagnosis. Pt denied being diagnosed with bipolar. Neuropsych testing conducted by Dr. Nedra Curran, Ph.D and pt refused to accept that she has some cognitive deficits. Attending psychiatrist reviewed testing results and current medication regimen with pt. Pt verbalized agreement to medication regimen. Pt's social and medical issues reviewed. Pt provided senior medical writer with verbal and written consent form for daughterPhyllis and sonRaymundo. Tx plan reviewed and discussed. SW will continue to follow case. - Treatment Team Participation Patient/Family/SO Statement: Bipolar Disorder w/ Psychotic Features -Individual and group therapy -Psychoeducation -Continue Risperdal PO -Risperdal Consta 25 mg IM given on 07/21/18 -Fluid Restriction -Medicine consult -UTILIZATION MANAGEMENT RN consult -Disposition planning- case discussed w/ patient's family Discussed with Family/SO: No Treatment Plan Review Patient participation: Yes Family/SO/Caregiver participation: No Additional Comments: Pt seen and discussed in team meeting. Pt's progress and bx on the unit reviewed and discussed. Pt reported her mood is "ok." Pt reported good sleep and appetite. SW reviewed meeting with pt and pt's children held on 07/22/2018. Pt stated "I don't remember anything." Pt refused to be cooperative during team meeting. Pt appeared to be anxious and with a blank stare. Pt informed that during family meeting she agreed to [facility] care referral. Pt provided with psycho-education regarding medication management and self care. Pt stated "how long for placement?" Permit Agent explained that it is a process and that her daughter and son are in the process of applying for institutional medicaid. Pt proceeded to get up and exit the room. Tx plan reviewed and discussed. SW will continue to follow up with family and will initiate referral to [facility] as per request of family. - Problem Problem 2 Time Initiated: 17:29 Agitated/Aggressive Behavior Date Initiated: 07/16/18 Time Initiated: 17:26 Progress toward outcomes: resolved Altered Thought Process Date Initiated: 07/16/18 Time Initiated: 17:30 Progress toward outcomes: improved - Discharge / Continuing Care Discharge to:: [facility]: Other (Medication Management) Health Needs: Follow up care/test, Doctor appointments, Special equipment, Nutritional, Medications/Rx, Educational
--- NOTE | 2018-07-24 15:33 | MRI ---
Date of service: 07/23/2018 PROCEDURE: PELVIS MRI WITH WITHOUT CONTRAST. HISTORY: R/o vaginal fistula COMPARISON: None available. TECHNIQUE: Multiplanar multisequential MR examination of the pelvis was performed using multiphasic technique with 18 cc of Omniscan use intravenously for the contrast-enhanced series. FINDINGS: Vaginal vault is unremarkable normal mucosal enhancement appreciated no fluid collection, mass or debris is identified within the vaginal vault diffusely. There is therefore no MR pattern to suggest official involving the vagina. The uterus is anteverted measuring 6.1 x 6.4 x 4.0 cm with a small left intramural fibroid partially calcified measuring 7 mm greatest dimension. A much larger fibroid measures 5.0 x 4.3 x 5.0 cm exophytic off the right corpus and is largely calcified. No additional myometrial lesion appreciable. Lesion seen between the left side of the uterine fundus and a trophic left ovary is dark with T1 signal nearly completely, intermediate on short TE weighting and is suspicious for a 2.7 x 2.3 x 2.8 cm paraovarian cyst, possibly with hemorrhage or other proteinaceous material within the lumen. Differential diagnosis would be an atypical but exophytic uterine fibroid though it does not demonstrate the usual heterogeneous signal that fibroids typically exhibit. Finally, if the patient is postoperative, than a complex peritoneal cyst or loculated seroma is a possibility. Trace fluid is seen the endometrial cavity without suspicious endometrial mass appreciable. Junctional zone appears grossly unremarkable. No definite cervical pathology appreciable. The right ovary is unremarkable measuring 1.1 x 1.8 x 1.8 cm. The left ovary measures 1 cm greatest dimension. Visualized bowel appears unremarkable the urinary bladder distended but otherwise unremarkable as well. No suspicious bony pelvic findings although fibrocystic change are seen related to the right hip joint at the weight-bearing portion of the acetabulum degenerative cortical sclerosis seen related to the bilateral hip and sacroiliac joints. No presacral mass appreciable. No prominent lymphadenopathy in the visualized pelvis. Shotty bilateral inguinal lymph nodes are identified. No suspicious contrast enhancement throughout the pelvis following intravenous gadolinium administration. IMPRESSION: 1. No MR evidence of vaginal fistula as per above. 2. At least 2 uterine fibroids identified with the dominant fibroid exophytic toward the right measuring 5.0 cm greatest dimension. 3. Left adnexal lesion measuring 2.8 cm reflecting complicated paraovarian or peritoneal inclusion is suspicious and may contain hemorrhagic products on a chronic basis or other proteinaceous fluid. Exophytic atypical fibroid not favored. 4. Atrophic left ovary with lower limits normal size right ovary.
--- NOTE | 2018-07-25 08:24 | PCM.PYCHPN ---
Psychiatric Progress Note - Psychiatric Progress Note Patient seen today, length of contact: Pt evaluated, case discussed w/ team, chart reviewed Patient Chief Complaint: Delusions Problems Identified/Issues Discussed: No new events overnight. Patient continues to have poor insight/judgment and needs direction to take care of herself. She continues to have delusional beliefs that she can resurrect the (specifically animals). She denies acute AH/VH. She received the Risperdal Consta injection on 07/21/18. Patient will likely need cardiology nurse practitioner placement as she is not able to care for herself at this time. Medication Change: No Medical Record Reviewed: Yes Consults ordered or reviewed: Medicine consult, Psychology consult, FIELD SERVICE SUPERVISOR consult Mental Status Examination - Cognitive Function Orientation: Person, Place, Situation, Time Memory: Impaired Attention: Poor Decription of patient's judgement and insights: Chronic limitations in insight and judgment - Mood Mood: Neutral - Affect Affect: Other (Labile) - Speech Speech: Loud - Formal Thought Process Formal Thought Process: Delusions, Loosening of associations Psychotic Thoughts and Behaviors: +Delusion that she can resurrect the - Suicidal Ideation Suicidal Ideation: No - Homicidal Ideation Homicidal Ideation: No Goal/Treatment Plan - Goal/Treatment Plan Need for Continued Stay: Severe depression anxiety, Discharge may exacerbated symptoms Progress Toward Problem(s) and Goals/Treatment Plan: Bipolar Disorder w/ Psychotic Features -Individual and group therapy -Psychoeducation -Continue Risperdal PO -Risperdal Consta 25 mg IM given on 07/21/18 -Fluid Restriction -Medicine consult -FIELD SERVICE SUPERVISOR consult -Disposition planning- disposition planning w/ family as patient will likely need cardiology nurse practitioner placement
--- NOTE | 2018-07-26 08:53 | PCM.PYCHPN ---
Psychiatric Progress Note - Psychiatric Progress Note Patient seen today, length of contact: Pt evaluated, case discussed w/ team, chart reviewed Patient Chief Complaint: Delusions Problems Identified/Issues Discussed: Patient continues to have poor insight/judgment, poor self care, and needs staff direction to take care of herself. She continues to have delusional beliefs that she can resurrect the (specifically animals). She denies acute AH/VH. Medication Change: No Medical Record Reviewed: Yes Consults ordered or reviewed: Medicine consult, Psychology consult, MATCHER OFFBEARER consult Mental Status Examination - Cognitive Function Orientation: Person, Place, Situation, Time Memory: Impaired Attention: Poor Decription of patient's judgement and insights: Chronic limitations in insight and judgment - Mood Mood: Neutral - Affect Affect: Other (Labile) - Speech Speech: Loud - Formal Thought Process Formal Thought Process: Delusions, Loosening of associations Psychotic Thoughts and Behaviors: +Delusion that she can resurrect the - Suicidal Ideation Suicidal Ideation: No - Homicidal Ideation Homicidal Ideation: No Goal/Treatment Plan - Goal/Treatment Plan Need for Continued Stay: Severe depression anxiety, Discharge may exacerbated symptoms Progress Toward Problem(s) and Goals/Treatment Plan: Bipolar Disorder w/ Psychotic Features -Individual and group therapy -Psychoeducation -Continue Risperdal PO -Risperdal Consta 25 mg IM given on 07/21/18 -Fluid Restriction -Medicine consult -MATCHER OFFBEARER consult -Disposition planning- disposition planning w/ family as patient will likely need longterm placement
--- NOTE | 2018-07-27 10:17 | PCM.PYCHPN ---
Psychiatric Progress Note - Psychiatric Progress Note Patient seen today, length of contact: Pt evaluated, case discussed w/ team, chart reviewed Patient Chief Complaint: Delusions Problems Identified/Issues Discussed: Patient is improving clinically. She seems to be approaching her baseline of functioning. Patient continues to have delusional beliefs that she can resurrect the , but this delusions seem to be chronic/fixed and unlikely to improve with continued titration of medications. Patient continues to need staff redirection at times. Primary team to continue to work with family re: disposition planning (see SW notes). No acute AH/VH. Medication Change: No Medical Record Reviewed: Yes Consults ordered or reviewed: Medicine consult, Psychology consult, INJECTION WAX MOLDER consult Mental Status Examination - Cognitive Function Orientation: Person, Place, Situation, Time Memory: Impaired Attention: Poor Decription of patient's judgement and insights: Chronic limitations in insight and judgment - Mood Mood: Neutral - Affect Affect: Other (Labile) - Speech Speech: Loud - Formal Thought Process Formal Thought Process: Delusions, Loosening of associations Psychotic Thoughts and Behaviors: +Delusion that she can resurrect the - Suicidal Ideation Suicidal Ideation: No - Homicidal Ideation Homicidal Ideation: No Goal/Treatment Plan - Goal/Treatment Plan Need for Continued Stay: Severe depression anxiety, Discharge may exacerbated symptoms Progress Toward Problem(s) and Goals/Treatment Plan: Bipolar Disorder w/ Psychotic Features -Individual and group therapy -Psychoeducation -Continue Risperdal PO -Risperdal Consta 25 mg IM given on 07/21/18 -Fluid Restriction -Medicine consult -INJECTION WAX MOLDER consult -Disposition planning- disposition planning w/ family as patient will likely need [facility] placement
--- NOTE | 2018-07-28 08:11 | PCM.PYCHPN ---
Psychiatric Progress Note - Psychiatric Progress Note Patient seen today, length of contact: Pt evaluated, case discussed w/ team, chart reviewed Patient Chief Complaint: Inability to care for self Problems Identified/Issues Discussed: Patient has improved clinically. No acute behavioral issues. She will need half-way placement as she is not able to care for herself at this time. She has chronic, fixed delusions that she can resurrect the , but these are u nlikely to improve with further titration of medications as she has had these delusions for >20 years. She does not act on these delusions and does not talk about them unless explicitly asked. She is at her baseline and is stable for referral to half-way placement. No acute AH/VH/SI/HI. Medication Change: No Medical Record Reviewed: Yes Consults ordered or reviewed: Medicine consult, Psychology consult, GAUGE AND WEIGH MACHINE OPERATOR consult Mental Status Examination - Cognitive Function Orientation: Person, Place, Situation, Time Memory: Impaired Attention: Poor Decription of patient's judgement and insights: Chronic limitations in insight and judgment - Mood Mood: Neutral - Affect Affect: Constricted - Speech Speech: Loud - Formal Thought Process Formal Thought Process: Delusions Psychotic Thoughts and Behaviors: +chronic fixed delusions, but patient does not discuss them or act on them; no acute behavioral issues; no AH/VH - Suicidal Ideation Suicidal Ideation: No - Homicidal Ideation Homicidal Ideation: No Goal/Treatment Plan - Goal/Treatment Plan Need for Continued Stay: Severe functional impairment Progress Toward Problem(s) and Goals/Treatment Plan: Bipolar Disorder w/ Psychotic Features; Major Neurocognitive Disorder -Individual and group therapy -Psychoeducation -Continue Risperdal PO -Risperdal Consta 25 mg IM given on 07/21/18 -Fluid Restriction -Medicine consult -GAUGE AND WEIGH MACHINE OPERATOR consult -Disposition planning- refer for manager intermediate placement
--- NOTE | 2018-07-29 08:17 | PCM.PYCHPN ---
Psychiatric Progress Note - Psychiatric Progress Note Patient seen today, length of contact: Pt evaluated, case discussed w/ team, chart reviewed Patient Chief Complaint: Inability to care for self Problems Identified/Issues Discussed: No significant events overnight. Patient will need tank terminal gauger placement as she is not able to care for herself at this time. She has chronic, fixed delusions that she can resurrect the , but these are unlikely to improve with further titration of medications as she has had these delusions for >20 years. She does not act on these delusions and does not talk about them unless explicitly asked. She is at her baseline and is stable for referral to tank terminal gauger placement. No acute AH/VH/SI/HI. Medication Change: No Medical Record Reviewed: Yes Consults ordered or reviewed: Medicine consult, Psychology consult, BUILDING CONSTRUCTION SUPERVISOR consult Mental Status Examination - Cognitive Function Orientation: Person, Place, Situation, Time Memory: Impaired Attention: Poor Decription of patient's judgement and insights: Chronic limitations in insight and judgment - Mood Mood: Neutral - Affect Affect: Constricted - Speech Speech: Loud - Formal Thought Process Formal Thought Process: Delusions Psychotic Thoughts and Behaviors: +chronic fixed delusions, but patient does not discuss them or act on them; no acute behavioral issues; no AH/VH - Suicidal Ideation Suicidal Ideation: No - Homicidal Ideation Homicidal Ideation: No Goal/Treatment Plan - Goal/Treatment Plan Need for Continued Stay: Severe functional impairment Progress Toward Problem(s) and Goals/Treatment Plan: Bipolar Disorder w/ Psychotic Features; Major Neurocognitive Disorder -Individual and group therapy -Psychoeducation -Continue Risperdal PO -Risperdal Consta 25 mg IM given on 07/21/18 -Fluid Restriction -Medicine consult -BUILDING CONSTRUCTION SUPERVISOR consult -Disposition planning- refer for tank terminal gauger placement
[2018-07-29 10:54] LABS: HEMOGLOBIN 13.1 g/dL (12.0-16.0); MEAN CELL VOLUME 78.5 fl (81.0-99.0); MEAN CORPUSCULAR HEMOGLOBIN 26.1 pg (27.0-31.0); MEAN CORPUSCULAR HGB CONC 33.2 g/dL (33.0-37.0); RBC 5.04 Mil/uL (3.80-5.20); RED CELL DISTRIBUTION WIDTH 16.1 % (11.5-14.5); WHITE BLOOD COUNT 7.6 K/uL (4.8-10.8)
[2018-07-29 11:09] LABS: ALB/GLOB RATIO 1.4 (1.0-2.1); ALBUMIN 4.6 g/dL (3.5-5.0); ALT/SGPT 29 U/L (9-52); AST/SGOT 21 U/L (14-36); BLOOD UREA NITROGEN 11 mg/dl (7-17); CALCIUM 9.3 mg/dL (8.4-10.2); GFR NON-AFRICAN AMERICAN > 60
--- NOTE | 2018-07-30 08:12 | PCM.PYCHPN ---
Psychiatric Progress Note - Psychiatric Progress Note Patient seen today, length of contact: Pt evaluated, case discussed w/ team, chart reviewed Patient Chief Complaint: Inability to care for self Problems Identified/Issues Discussed: No new events. Patient being referred to alf placement as she is not able to care for herself at this time. She is at her baseline and is stable for referral to local intermodal truck driver placement. No acute AH/VH/SI/HI. Medication Change: No Medical Record Reviewed: Yes Consults ordered or reviewed: Medicine consult, Psychology consult, VEHICLE FUEL SYSTEMS CONVERTER consult Mental Status Examination - Cognitive Function Orientation: Person, Place, Situation, Time Memory: Impaired Attention: Poor Decription of patient's judgement and insights: Chronic limitations in insight and judgment - Mood Mood: Neutral - Affect Affect: Constricted - Speech Speech: Appropriate - Formal Thought Process Formal Thought Process: Delusions Psychotic Thoughts and Behaviors: +chronic fixed delusions, but patient does not discuss them or act on them; no acute behavioral issues; no AH/VH - Suicidal Ideation Suicidal Ideation: No - Homicidal Ideation Homicidal Ideation: No Goal/Treatment Plan - Goal/Treatment Plan Need for Continued Stay: Severe functional impairment Progress Toward Problem(s) and Goals/Treatment Plan: Bipolar Disorder w/ Psychotic Features; Major Neurocognitive Disorder -Individual and group therapy -Psychoeducation -Continue Risperdal PO -Risperdal Consta 25 mg IM given on 07/21/18 -Fluid Restriction -Medicine consult -VEHICLE FUEL SYSTEMS CONVERTER consult -Disposition planning- refer for local intermodal truck driver placement
--- NOTE | 2018-07-30 13:32 | CP.PCM.CON ---
History of Present Illness - History of Present Illness History of Present Illness: A 68 yo female wtih PMH of HTN, Anal herpes, Prev Hx of recto-vaginal fistula repaired in ? ( patient give different dates) bipolar disorder and depression Admitted to psych unit for depression and bipolar disorders. OBGYN Re-consulted for Recto-vaginal fistula and MRI finding of Left adnexal lesion. On 07/22 Ob was consulted due for possible recto vaginal fistula, upon physical examination there was + for stool along with white discharge, Patient was sent for MRI which was negative for fistula but was + for Left adnexal lesion. ROS is negative except for HPI I personally reviewed Pt previous admission and surgery. THere was no prev complain of recto-vaginal fistula, there was a colonoscopy done in 2015, and + for polyp which were resected, otherwise no abnormalities. No other pertinent positive noted in previous patient hx Review of Systems - Review of Systems All systems: reviewed and no additional remarkable complaints except Past Patient History - Infectious Disease Hx of Infectious Diseases: None - Tetanus Immunizations Tetanus Immunization: Unknown - Past Medical History & Family History Past Medical History?: Yes - Past Social History Smoking Status: Former Smoker Chewing Tobacco Use: No - CARDIAC Hx Cardiac Disorders: No Hx Hypertension: No Hx Pacemaker: No - PULMONARY Hx Pneumonia: Yes - NEUROLOGICAL Hx Seizures: No - HEENT Hx HEENT Problems: Yes (eyeglasses) - RENAL Hx Chronic Kidney Disease: Yes Other/Comment: Hyponatremia 2016 - ENDOCRINE/METABOLIC Hx Endocrine Disorders: No - HEMATOLOGICAL/ONCOLOGICAL Hx Blood Disorders: No Hx Human Immunodeficiency Virus (HIV): No - INTEGUMENTARY Other/Comment: red burn to right arm - MUSCULOSKELETAL/RHEUMATOLOGICAL Hx Musculoskeletal Disorders: No Hx Falls: No - GASTROINTESTINAL Hx Gastrointestinal Disorders: No Other/Comment: colonoscopy 02/28/2016 colon polyps with bx - GENITOURINARY/GYNECOLOGICAL Hx Sexually Transmitted Disorders: No - PSYCHIATRIC Hx Bipolar Disorder: Yes Hx Depression: Yes - SURGICAL HISTORY Hx Surgeries: No Other/Comment: Anal Fistula repair - ANESTHESIA Hx Anesthesia Reactions: No Hx Malignant Hyperthermia: No Meds Allergies/Adverse Reactions: Allergies Allergy/AdvReac Type Severity Reaction Status Date / Time No Known Allergies Allergy Verified 07/07/18 14:38 - Medications Medications: Current Medications Acetaminophen (Tylenol 325mg Tab) 650 mg PO Q4 PRN PRN Reason: Pain, moderate (4-7) Al Hydrox/Mg Hydrox/Simethicone (Maalox Plus 30 Ml) 30 ml PO Q4 PRN PRN Reason: Dyspepsia Bismuth Subsalicylate (Pepto-Bismol) 524 mg PO Q4 PRN PRN Reason: Diarrhea Docusate Sodium (Colace) 100 mg PO BID PRN PRN Reason: Constipation Last Admin: 07/29/18 16:52 Dose: 100 mg Lorazepam (Ativan) 1 mg PO Q6 PRN PRN Reason: Anxiety Last Admin: 07/29/18 22:09 Dose: 1 mg Magnesium Hydroxide (Milk Of Magnesia) 30 ml PO HS PRN PRN Reason: Constipation Risperidone (Risperdal Tab) 2 mg PO Q12 GREGORIO Stop: 08/04/18 08:00 Last Admin: 07/30/18 08:46 Dose: 2 mg Risperidone (Risperdal Consta) 25 mg IM ONCE ONE Stop: 08/04/18 09:01 Physical Exam - Constitutional Appears: Well, Non-toxic, No Acute Distress - Head Exam Head Exam: ATRAUMATIC, NORMAL INSPECTION, NORMOCEPHALIC - ENT Exam ENT Exam: Mucous Membranes Moist, Normal Exam - Neck Exam Neck exam: Positive for: Normal Inspection - Respiratory Exam Respiratory Exam: Clear to Auscultation Bilateral, NORMAL BREATHING PATTERN - Cardiovascular Exam Cardiovascular Exam: REGULAR RHYTHM, +S1, +S2 - GI/Abdominal Exam GI & Abdominal Exam: Normal Bowel Sounds, Soft Results - Vital Signs Recent Vital Signs: Last Vital Signs Temp 97.2 F L 07/30/18 05:59 Pulse 96 H 07/30/18 05:59 Resp 18 07/30/18 05:59 BP 114/76 07/30/18 05:59 Pulse Ox - Labs Result Diagrams: 07/29/18 10:30 07/29/18 10:30 Assessment & Plan - Assessment and Plan (Free Text) Assessment: 68 yo woman with with pmh of HTn, Anal herpes, Previous hx of anal-vaginal fistula repaired on 1995, bipolar disorder and depression, [facility] and bipolar disorder. OBGYN was re-consulted for + stool discharge from vagina and MRI finding. MRI: No MR evidence of vag fistula. 2 uterine fibroids identified with the dominant fibroid exophytic toward the right measuring 5.0 cm greatest dimension Left adnexal lesion measuring 2.8cm reflecting complicated paraovarian or peritoneal inclusion is suspicious and may contain hemorrhagic products on a chronic basis or other proteinaceous fluid. Exophytic atypical fibroid not favored. Assessment and plan Stool in vagina most likely due to rectal-vaginal fistula Even if MRI negative due to high suspicion of fistula, it cannot be r/o Hx of fistula, PE stool in vagina Patient should follow up with Colorectal surgeon for fistula repiar as out patient. LEft adnexal lesion hemorragic cyst vs malignancy + MRI for Cyst Will follow up with [facility]-125 Depend on result will proceed Thank you for consult, will continue follow up with patient.
[2018-07-31 07:12] LABS: BLOOD UREA NITROGEN 13 mg/dl (7-17); CALCIUM 9.4 mg/dL (8.4-10.2); GFR NON-AFRICAN AMERICAN > 60
--- NOTE | 2018-07-31 07:15 | CP.PCM.PN ---
Subjective - Date & Time of Evaluation Date of Evaluation: 07/31/18 - Subjective Subjective: Patient seen and examined at bedside today, No acute event overnight Objective - Vital Signs/Intake and Output Vital Signs (last 24 hours): Temp Pulse Resp BP Pulse Ox 97.2 F L 79 18 115/71 07/31/18 05:56 07/31/18 05:56 07/31/18 05:56 07/31/18 05:56 Intake and Output: 07/31/18 07/31/18 06:59 18:59 Intake Total 250 Balance 250 - Medications Medications: Current Medications Acetaminophen (Tylenol 325mg Tab) 650 mg PO Q4 PRN PRN Reason: Pain, moderate (4-7) Al Hydrox/Mg Hydrox/Simethicone (Maalox Plus 30 Ml) 30 ml PO Q4 PRN PRN Reason: Dyspepsia Bismuth Subsalicylate (Pepto-Bismol) 524 mg PO Q4 PRN PRN Reason: Diarrhea Docusate Sodium (Colace) 100 mg PO BID PRN PRN Reason: Constipation Last Admin: 07/30/18 21:23 Dose: 100 mg Lorazepam (Ativan) 1 mg PO Q6 PRN PRN Reason: Anxiety Last Admin: 07/30/18 22:47 Dose: 1 mg Magnesium Hydroxide (Milk Of Magnesia) 30 ml PO HS PRN PRN Reason: Constipation Risperidone (Risperdal Tab) 2 mg PO Q12 GREGORIO Stop: 08/04/18 08:00 Last Admin: 07/30/18 21:21 Dose: 2 mg Risperidone (Risperdal Consta) 25 mg IM ONCE ONE Stop: 08/04/18 09:01 - Labs Labs: 07/29/18 10:30 07/31/18 06:05
--- NOTE | 2018-07-31 08:26 | PCM.PYCHPN ---
Psychiatric Progress Note - Psychiatric Progress Note Patient seen today, length of contact: Pt evaluated, case discussed w/ team, chart reviewed Patient Chief Complaint: Inability to care for self Problems Identified/Issues Discussed: Patient was seen by OB consult yesterday (see note). Patient being referred to intermediate card tender placement as she is not able to care for herself at this time. She is at her baseline and is stable for referral to longterm placement. No acute AH/VH/SI/HI. Medication Change: No Medical Record Reviewed: Yes Consults ordered or reviewed: Medicine consult, Psychology consult, MANAGER SKILLED consult Mental Status Examination - Cognitive Function Orientation: Person, Place, Situation, Time Memory: Impaired Attention: Poor Decription of patient's judgement and insights: Chronic limitations in insight and judgment - Mood Mood: Neutral - Affect Affect: Constricted - Speech Speech: Appropriate - Formal Thought Process Formal Thought Process: Delusions Psychotic Thoughts and Behaviors: +chronic fixed delusions, but patient does not discuss them or act on them; no acute behavioral issues; no AH/VH - Suicidal Ideation Suicidal Ideation: No - Homicidal Ideation Homicidal Ideation: No Goal/Treatment Plan - Goal/Treatment Plan Need for Continued Stay: Severe functional impairment Progress Toward Problem(s) and Goals/Treatment Plan: Bipolar Disorder w/ Psychotic Features; Major Neurocognitive Disorder -Individual and group therapy -Psychoeducation -Continue Risperdal PO -Risperdal Consta 25 mg IM given on 07/21/18; next dose due 08/04/18 -Fluid Restriction -Medicine consult -MANAGER SKILLED consult; will f/u CA 125 -Disposition planning- refer for intermediate card tender placement
--- NOTE | 2018-07-31 11:56 | PCM.BM ---
Treatment Plan Problems - Problems identified on initial assessmt Anxiety Date Initiated: 07/16/18 Time Initiated: 17:29 Assessment reference: HP, NA Status: Active Agitated/Aggressive Behavior Date Initiated: 07/16/18 Time Initiated: 17:26 Assessment reference: HP, NA Status: Active Priority: 1 Altered Thought Process Date Initiated: 07/16/18 Time Initiated: 17:30 Assessment reference: HP, NA Status: Active Treatment assets and liabiliti Patient Assests: cooperative, negotiates basic needs Patient Liabilities: medical problems - Milieu Protocol Maintain good personal hygiene: daily Encourage regular showers, daily Remind patient to perform daily oral care, daily Assist patient to perform ADL's Conduct patient checks and document Observation sheet: Q15 minutes Maintain personal safety: every shift Educate patient to report safety concerns to staff, every shift Monitor environment for contraband/sharps Medication safety: Monitor for expected outcome, potential side effects: every shift, Assess barriers to learning: every shift, Assess readiness for medication education: every shift Milieu Narrative: Bipolar Disorder w/ Psychotic Features; Major Neurocognitive Disorder -Individual and group therapy -Psychoeducation -Continue Risperdal PO -Risperdal Consta 25 mg IM given on 07/21/18; next dose due 08/04/18 -Fluid Restriction -Medicine consult -SEALING MACHINE OPERATOR consult; will f/u CA 125 -Disposition planning- refer for jail placement Family Contact Family involvement: Family/SO is involved Family contact: Patient agrees to contact, Family has been contacted by patient, Telephone contact initiated by staff Family contact name: Wendy Family contacted how many times per week?: 2 - Outside Agency Dr. Robi De La Rosa [facility] Information-sharing Agency contact number: [phone] - Goals for Treatment Patient goals for treatment: Pt will improve overall symptoms. Pt will develop strategies for thought distrction when ruminating on the past. Pt will reduce anxiety and improve coping skills. Pt will comply with prescribed medications. Pt will attend clinical and activity groups. Pt will improve appetite and sleep pattern. Discharge/Continuing Care - Education Needs Education Needs: Family Medication, Family Diagnosis/Disease Process, Family Coping Skills, Family Placement options, Family Community resources, Family Nutrition, Family Health Practices/Safety, Family Personal Hygiene/Grooming, Family Aftercare Safety Plan, Patient Medication, Patient Diagnosis/Disease Process, Patient Coping Skills, Patient Placement options, Patient Community resources, Patient Nutrition, Patient Health Practices/Safety, Patient Personal Hygiene/Grooming, Patient Aftercare Safety Plan - Discharge Discharge Criteria: Tolerates medication w/o severe side effects, Free of paranoid thoughts, Free of agitation, Normal sleep pattern, Ability to care for self, Reduction of target symptoms Discharge to:: Care Home - Additional Comments 07/17/18 15:06 Pt seen and discussed in team meeting. Reason for re-admission reviewed and discussed. Pt continues to present with grandiose, believes that she can resurrect animals. Pt reported that she has resurrected a in the past. Pt presents with pressured and loud speech. Pt reported that she does not have a psychiatric diagnosis. Pt denied being diagnosed with bipolar. Neuropsych testing conducted by Dr. Nedra Curran, Ph.D and pt refused to accept that she has some cognitive deficits. Attending psychiatrist reviewed testing results and current medication regimen with pt. Pt verbalized agreement to medication regimen. Pt's social and medical issues reviewed. Pt provided leader writer with verbal and written consent form for daughterPhyllis and son, Raymundo. Tx plan reviewed and discussed. SW will continue to follow case. - Treatment Team Participation Patient/Family/SO Statement: Bipolar Disorder w/ Psychotic Features; Major Neurocognitive Disorder -Individual and group therapy -Psychoeducation -Continue Risperdal PO -Risperdal Consta 25 mg IM given on 07/21/18; next dose due 08/04/18 -Fluid Restriction -Medicine consult -SEALING MACHINE OPERATOR consult; will f/u CA 125 -Disposition planning- refer for jail placement Discussed with Family/SO: No Treatment Plan Review Patient participation: Yes Family/SO/Caregiver participation: No Additional Comments: Pt seen and discussed in team meeting. Pt's progress and bx on the unit reviewed and discussed. Pt is difficult to re-direct and cooperative with care and tx plan. Pt continues to drink excessive amount of water despite being instructed not to. Pt has been observed to be screaming and yelling for the nurse to "cover me" or "get me water." Pt also continues to scream and yell "i want to go home." Psycho-education provided regarding her sodium levels and 1000ml of water intake per day. Pt also advised that at the present time she is unable to acre for herself an her medical/psychiatric needs, therefore requires to be placed and referred to a keno terminal operator acre facility. Pt advised that her daughter and son have power of county attorney and have made a decision to place pt in a keno terminal operator care facility. Pt reported that she can take care of herself at home; however, not able to explain how she will do it. Pt Refuses to follow directions. Pt appears anxious at times, observed to be pacing up and down the hallway. Pt's medications reviewed and discussed, Risperdal injection due next week. SW will continue to follow case and follow up with [facility] in regarding referral faxed on 07/29/18. - Problem Anxiety Time Initiated: 17:29 Progress toward outcomes: unchanged (Pt has been observed to be pacing the hallway.) Agitated/Aggressive Behavior Date Initiated: 07/16/18 Time Initiated: 17:26 Progress toward outcomes: resolved Altered Thought Process Date Initiated: 07/16/18 Time Initiated: 17:30 Progress toward outcomes: improved - Discharge / Continuing Care Discharge to:: Care Home (Reefrred to [facility]) Behavioral Health Services: Other (Medication Management; structured group therapy) Health Needs: Follow up care/test, Nutritional, Medications/Rx, Educational, Recreational/Social
--- NOTE | 2018-07-31 16:00 | CP.PCM.CON ---
<Edelmira Dunlap - Last Filed: 07/31/18 15:50> History of Present Illness - History of Present Illness History of Present Illness: Patient reports her vaginal discharge is unchanged today. She has no complaints or questions. Review of Systems - Constitutional Constitutional: As Per HPI - Gastrointestinal Gastrointestinal: As Per HPI - Genitourinary Genitourinary: As Per HPI Past Patient History - Infectious Disease Hx of Infectious Diseases: None - Tetanus Immunizations Tetanus Immunization: Unknown - Past Medical History & Family History Past Medical History?: Yes - Past Social History Smoking Status: Former Smoker Chewing Tobacco Use: No - CARDIAC Hx Cardiac Disorders: No Hx Hypertension: No Hx Pacemaker: No - PULMONARY Hx Pneumonia: Yes - NEUROLOGICAL Hx Seizures: No - HEENT Hx HEENT Problems: Yes (eyeglasses) - RENAL Hx Chronic Kidney Disease: Yes Other/Comment: Hyponatremia 2017 - ENDOCRINE/METABOLIC Hx Endocrine Disorders: No - HEMATOLOGICAL/ONCOLOGICAL Hx Blood Disorders: No Hx Human Immunodeficiency Virus (HIV): No - INTEGUMENTARY Other/Comment: red burn to right arm - MUSCULOSKELETAL/RHEUMATOLOGICAL Hx Musculoskeletal Disorders: No Hx Falls: No - GASTROINTESTINAL Hx Gastrointestinal Disorders: No Other/Comment: colonoscopy 02/28/2016 colon polyps with bx - GENITOURINARY/GYNECOLOGICAL Hx Sexually Transmitted Disorders: No - PSYCHIATRIC Hx Bipolar Disorder: Yes Hx Depression: Yes - SURGICAL HISTORY Hx Surgeries: No Other/Comment: Anal Fistula repair - ANESTHESIA Hx Anesthesia Reactions: No Hx Malignant Hyperthermia: No Meds Allergies/Adverse Reactions: Allergies Allergy/AdvReac Type Severity Reaction Status Date / Time No Known Allergies Allergy Verified 07/07/18 14:38 - Medications Medications: Current Medications Acetaminophen (Tylenol 325mg Tab) 650 mg PO Q4 PRN PRN Reason: Pain, moderate (4-7) Al Hydrox/Mg Hydrox/Simethicone (Maalox Plus 30 Ml) 30 ml PO Q4 PRN PRN Reason: Dyspepsia Bismuth Subsalicylate (Pepto-Bismol) 524 mg PO Q4 PRN PRN Reason: Diarrhea Docusate Sodium (Colace) 100 mg PO BID PRN PRN Reason: Constipation Last Admin: 07/30/18 21:23 Dose: 100 mg Lorazepam (Ativan) 1 mg PO Q6 PRN PRN Reason: Anxiety Last Admin: 07/31/18 10:53 Dose: 1 mg Magnesium Hydroxide (Milk Of Magnesia) 30 ml PO HS PRN PRN Reason: Constipation Risperidone (Risperdal Tab) 2 mg PO Q12 GREGORIO Stop: 08/04/18 08:00 Last Admin: 07/31/18 08:45 Dose: 2 mg Risperidone (Risperdal Consta) 25 mg IM ONCE ONE Stop: 08/04/18 09:01 Physical Exam - Constitutional Appears: No Acute Distress - Head Exam Head Exam: ATRAUMATIC - Eye Exam Eye Exam: EOMI, Normal appearance. absent: Conjunctival injection - ENT Exam ENT Exam: Mucous Membranes Moist, Normal Exam - Respiratory Exam Respiratory Exam: NORMAL BREATHING PATTERN - Cardiovascular Exam Cardiovascular Exam: REGULAR RHYTHM - GI/Abdominal Exam GI & Abdominal Exam: absent: Rigid Results - Vital Signs Recent Vital Signs: Last Vital Signs Temp 97.2 F L 07/31/18 05:56 Pulse 79 07/31/18 05:56 Resp 18 07/31/18 05:56 BP 115/71 07/31/18 05:56 Pulse Ox - Labs Result Diagrams: 07/29/18 10:30 07/31/18 06:05 Labs: Laboratory Results - last 24 hr 07/31/18 06:05 Sodium 134 Potassium 4.0 Chloride 98 Carbon Dioxide 28 Anion Gap 12 BUN 13 Creatinine 0.8 Est GFR ( Amer) > 60 Est GFR (Non-Af Amer) > 60 Random Glucose 94 Calcium 9.4 CA 125 Antigen 5.7 Assessment & Plan (1) Adnexal mass Assessment and Plan: OBGYN has been consulted due to incidental finding of a L paraovarian mass on pelvic MRI. A CA-125 was ordered to help risk stratify the patient and guide further management. At this time with a CA-125 value <35 she is less likely ot have a malignant mass. This coupled with a lack of suspicious findings on imaging, such as irregular septations or nodules, suggests this mass is most likely benign. Given that she has not had a transvaginal US, which is the preferred imaging modality for adnexal masses, if the patient wishes to pursue further work-up we would recommend a transvaginal US in 3-6 months as long as the patient remains asymptomatic. If she develops symptoms we would recommend more immediate evaluation. This has been explained to the patient and she can further discuss this with her outpatient physician and care team. OBGYN will be signing off. Thank you for consulting us on this patient. Status: Acute <Stella Santana - Last Filed: 07/31/18 17:06> Meds - Medications Medications: Current Medications Acetaminophen (Tylenol 325mg Tab) 650 mg PO Q4 PRN PRN Reason: Pain, moderate (4-7) Al Hydrox/Mg Hydrox/Simethicone (Maalox Plus 30 Ml) 30 ml PO Q4 PRN PRN Reason: Dyspepsia Bismuth Subsalicylate (Pepto-Bismol) 524 mg PO Q4 PRN PRN Reason: Diarrhea Docusate Sodium (Colace) 100 mg PO BID PRN PRN Reason: Constipation Last Admin: 07/30/18 21:23 Dose: 100 mg Lorazepam (Ativan) 1 mg PO Q6 PRN PRN Reason: Anxiety Last Admin: 07/31/18 10:53 Dose: 1 mg Magnesium Hydroxide (Milk Of Magnesia) 30 ml PO HS PRN PRN Reason: Constipation Risperidone (Risperdal Tab) 2 mg PO Q12 GREGORIO Stop: 08/04/18 08:00 Last Admin: 07/31/18 08:45 Dose: 2 mg Risperidone (Risperdal Consta) 25 mg IM ONCE ONE Stop: 08/04/18 09:01 Results - Vital Signs Recent Vital Signs: Last Vital Signs Temp 97.2 F L 07/31/18 05:56 Pulse 79 07/31/18 05:56 Resp 18 07/31/18 05:56 BP 115/71 07/31/18 05:56 Pulse Ox - Labs Result Diagrams: 07/29/18 10:30 07/31/18 06:05 Labs: Laboratory Results - last 24 hr 07/31/18 06:05 Sodium 134 Potassium 4.0 Chloride 98 Carbon Dioxide 28 Anion Gap 12 BUN 13 Creatinine 0.8 Est GFR ( Amer) > 60 Est GFR (Non-Af Amer) > 60 Random Glucose 94 Calcium 9.4 CA 125 Antigen 5.7 Assessment & Plan - Assessment and Plan (Free Text) Assessment: OB Hospitalist Addendum: I saw this pt w/ the OB fellow and agree w/ above. 68 yo female w/ 2.8 cm possibly complicated left paraovarian cyst w/ CA-125 5.7. Rec follow-up u/s in 3-6 months or sooner if pt develops symptoms, ie. pain, abdmominal discomfort.
--- NOTE | 2018-08-01 11:47 | PCM.PYCHPN ---
Psychiatric Progress Note - Psychiatric Progress Note Patient seen today, length of contact: Pt evaluated, case discussed w/ team, chart reviewed Patient Chief Complaint: pt has remained very tangential and still unable to take care of herself and need further stabilization.pt is ruled out for cancer of ovaries Medication Change: No Medical Record Reviewed: Yes Mental Status Examination - Cognitive Function Orientation: Person, Place, Situation, Time Memory: Impaired Attention: Poor - Mood Mood: Neutral - Affect Affect: Constricted - Speech Speech: Appropriate - Formal Thought Process Formal Thought Process: Delusions - Suicidal Ideation Suicidal Ideation: No - Homicidal Ideation Homicidal Ideation: No Goal/Treatment Plan - Goal/Treatment Plan Need for Continued Stay: Severe functional impairment Progress Toward Problem(s) and Goals/Treatment Plan: will continue the current regimen of meds and managment pt need residential placement .
[2018-08-02 05:57] VITALS: O2SAT 95
--- NOTE | 2018-08-02 14:34 | PCM.PYCHPN ---
Psychiatric Progress Note - Psychiatric Progress Note Patient seen today, length of contact: Pt evaluated, case discussed w/ team, chart reviewed Patient Chief Complaint: pt has been very anxious and worried about going to NH .pt c/c chest pain.pt has remained very tangential and still unable to take care of herself and need further stabilization.pt is ruled out for cancer of ovaries pt is on water restriction due to low sodium. Medication Change: No Medical Record Reviewed: Yes Mental Status Examination - Cognitive Function Orientation: Person, Place, Situation, Time Memory: Impaired Attention: Poor - Mood Mood: Neutral - Affect Affect: Constricted - Speech Speech: Appropriate - Formal Thought Process Formal Thought Process: Delusions - Suicidal Ideation Suicidal Ideation: No - Homicidal Ideation Homicidal Ideation: No Goal/Treatment Plan - Goal/Treatment Plan Need for Continued Stay: Severe functional impairment Progress Toward Problem(s) and Goals/Treatment Plan: will continue the current regimen of meds and managment pt need buttermaker helper placement . will do medical cosult for chest pain.
--- NOTE | 2018-08-02 15:36 | CP.PCM.PN ---
<Stella Miranda Precious - Last Filed: 08/02/18 15:22> Subjective - Date & Time of Evaluation Date of Evaluation: 08/02/18 Time of Evaluation: 15:25 - Subjective Subjective: Patient was seen and evaluated in Psych unit this afternoon due to left side chest pain. Patient was seen alert, awake, and in no acute distress. She states is in her left upper chest close to her left shoulder, no radiates. Patient is a very poor historian and answers questions about the pain with " yes" "yes". Unable to get more information about current pain. Denies acid reflux, N/V. PE: alert and awake. NAD respiratory: CTA B/L CV: RRR, normal S1, S2 pain is reproducible with palpation of left upper chest and right side as well. No evidence of rash. Casi: no edema Plan: atypical CP: EKG d/w attending Dr. Walker Objective - Vital Signs/Intake and Output Vital Signs (last 24 hours): Temp Pulse Resp BP Pulse Ox 98.5 F 77 18 114/76 95 08/02/18 05:57 08/02/18 05:57 08/02/18 05:57 08/02/18 05:57 08/02/18 05:57 Intake and Output: 08/02/18 08/02/18 06:59 18:59 Intake Total 120 Balance 120 - Medications Medications: Current Medications Acetaminophen (Tylenol 325mg Tab) 650 mg PO Q4 PRN PRN Reason: Pain, moderate (4-7) Al Hydrox/Mg Hydrox/Simethicone (Maalox Plus 30 Ml) 30 ml PO Q4 PRN PRN Reason: Dyspepsia Bismuth Subsalicylate (Pepto-Bismol) 524 mg PO Q4 PRN PRN Reason: Diarrhea Docusate Sodium (Colace) 100 mg PO BID PRN PRN Reason: Constipation Last Admin: 08/02/18 08:45 Dose: 100 mg Lorazepam (Ativan) 1 mg PO Q6 PRN PRN Reason: Anxiety Last Admin: 08/02/18 14:04 Dose: 1 mg Magnesium Hydroxide (Milk Of Magnesia) 30 ml PO HS PRN PRN Reason: Constipation Risperidone (Risperdal Tab) 2 mg PO Q12 GREGORIO Stop: 08/04/18 08:00 Last Admin: 08/02/18 08:44 Dose: 2 mg Risperidone (Risperdal Consta) 25 mg IM ONCE ONE Stop: 08/04/18 09:01 - Labs Labs: 07/29/18 10:30 07/31/18 06:05 Assessment and Plan (1) Hyponatremia Status: Acute <Jennifer Walker - Last Filed: 08/04/18 07:40> Objective - Vital Signs/Intake and Output Vital Signs (last 24 hours): Temp Pulse Resp BP Pulse Ox 98.2 F 74 18 120/77 95 08/04/18 05:52 08/04/18 05:52 08/04/18 05:52 08/04/18 05:52 08/02/18 05:57 Intake and Output: 08/04/18 08/04/18 06:59 18:59 Intake Total 120 Balance 120 - Medications Medications: Current Medications Acetaminophen (Tylenol 325mg Tab) 650 mg PO Q4 PRN PRN Reason: Pain, moderate (4-7) Al Hydrox/Mg Hydrox/Simethicone (Maalox Plus 30 Ml) 30 ml PO Q4 PRN PRN Reason: Dyspepsia Bismuth Subsalicylate (Pepto-Bismol) 524 mg PO Q4 PRN PRN Reason: Diarrhea Docusate Sodium (Colace) 100 mg PO BID PRN PRN Reason: Constipation Last Admin: 08/03/18 08:30 Dose: 100 mg Lorazepam (Ativan) 1 mg PO Q6 PRN PRN Reason: Anxiety Last Admin: 08/02/18 21:28 Dose: 1 mg Magnesium Hydroxide (Milk Of Magnesia) 30 ml PO HS PRN PRN Reason: Constipation Naproxen (Naprosyn Tab) 375 mg PO Q12 GREGORIO Last Admin: 08/03/18 08:31 Dose: Not Given Risperidone (Risperdal Tab) 2 mg PO Q12 GREGORIO Stop: 08/04/18 08:00 Last Admin: 08/03/18 21:11 Dose: 2 mg Risperidone (Risperdal Consta) 25 mg IM ONCE ONE Stop: 08/04/18 09:01 - Labs Labs: 07/29/18 10:30 07/31/18 06:05 Attending/Attestation - Attestation I have personally seen and examined this patient.: Yes I have fully participated in the care of the patient.: Yes I have reviewed all pertinent clinical information, including history, physical exam and plan: Yes Notes (Text): 08/04/18 07:40 Patient admitted to psych evaluated for chest pain. EKG and troponins pending to be followed up. Does not appear to be of cardiac in nature. Agree with findings and plan as above
--- NOTE | 2018-08-02 21:14 | CARD ---
APPROVED REPORT Date of service: 08/02/2018 EKG Measurement Heart [id number] <Conclusion> Normal sinus rhythm Normal ECG
--- NOTE | 2018-08-03 16:22 | PCM.PYCHPN ---
Psychiatric Progress Note - Psychiatric Progress Note Patient seen today, length of contact: Pt evaluated, case discussed w/ team, chart reviewed Problems Identified/Issues Discussed: alteration in mood alteration in self care alteration health status Medical Problems: per chart Diagnostic Results: per psychiatry per medicine per nursing per social work per recreational therapy DSM 5 Symptoms Update: alteration in mood alteration in self care Medication Change: No Medical Record Reviewed: Yes Consults ordered or reviewed: pt seen by hospitalist Mental Status Examination - Cognitive Function Orientation: Person, Place, Situation, Time Memory: Impaired Attention: Poor Decription of patient's judgement and insights: impaired - Mood Mood: Neutral - Affect Affect: Constricted - Speech Speech: Appropriate, Soft - Formal Thought Process Formal Thought Process: Delusions - Suicidal Ideation Suicidal Ideation: No - Homicidal Ideation Homicidal Ideation: No Goal/Treatment Plan - Goal/Treatment Plan Need for Continued Stay: Severe functional impairment Progress Toward Problem(s) and Goals/Treatment Plan: inpt milieu adjust meds per clinical status vital signs and clinical observation pt being followed by medicine discharge planning in progress Estimated Date of D/C: 08/07/18 - Smoking Cessation Smoking Cessation Initiated: No Reason for not providing: defers
[2018-08-04] MEDS ORDERED: risperiDONE Consta 25mg/2ml Syringe IM ONE (09:00)
--- NOTE | 2018-08-04 16:53 | PCM.PYCHPN ---
Psychiatric Progress Note - Psychiatric Progress Note Patient seen today, length of contact: Pt evaluated, case discussed w/ team, chart reviewed Patient Chief Complaint: pt seen laying in room, case discussed with team, pt was evaluated telephone services sales representative ltc facility deemed to require a ltc/behavioral unit. pt rx adherent, requires total care. rx adherent with redirection/support. pt received risperdal consta im dose today by nursing staff. staff report pt delusional at times, believing can resurrection of animals. Problems Identified/Issues Discussed: alteration in mood alteration in self care alteration health status Medical Problems: per chart Diagnostic Results: per psychiatry per medicine per nursing per social work per recreational therapy DSM 5 Symptoms Update: anxious, confusion, likely baseline Medication Change: No Medical Record Reviewed: Yes Consults ordered or reviewed: pt being seen by medical team Mental Status Examination - Cognitive Function Orientation: Person, Place, Situation, Time Memory: Impaired Attention: Poor Concentration: Poor Association: Loose Fund of Knowledge: Poor Decription of patient's judgement and insights: impaired - Mood Mood: Neutral - Affect Affect: Constricted - Speech Speech: Appropriate, Soft - Formal Thought Process Formal Thought Process: Delusions - Suicidal Ideation Suicidal Ideation: No - Homicidal Ideation Homicidal Ideation: No Goal/Treatment Plan - Goal/Treatment Plan Need for Continued Stay: Severe functional impairment Progress Toward Problem(s) and Goals/Treatment Plan: inpt milieu adjust meds per clinical status vital signs and clinical observation pt being followed by medicine discharge planning in progress Estimated Date of D/C: 08/07/18 - Smoking Cessation Smoking Cessation Initiated: No Reason for not providing: pt defers
[2018-08-05 12:50] LABS: BLOOD UREA NITROGEN 10 mg/dl (7-17); CALCIUM 9.8 mg/dL (8.4-10.2); GFR NON-AFRICAN AMERICAN > 60
--- NOTE | 2018-08-05 18:18 | PCM.PYCHPN ---
Psychiatric Progress Note - Psychiatric Progress Note Patient seen today, length of contact: Pt evaluated, case discussed w/ team, chart reviewed Patient Chief Complaint: pt seen laying in room, then walking about in unit, at times pacing, calling out at times. requires total care, adherent with rx with set up for meals and medications. Problems Identified/Issues Discussed: alteration in mood alteration in self care alteration health status Medical Problems: per chart Diagnostic Results: per psychiatry per medicine per nursing per social work per recreational therapy DSM 5 Symptoms Update: lability it mood confusing Medication Change: No Medical Record Reviewed: Yes Consults ordered or reviewed: pt being followed by medical team Mental Status Examination - Cognitive Function Orientation: Person, Place, Situation, Time Memory: Impaired Attention: Poor Concentration: Poor Association: Loose Fund of Knowledge: Poor Decription of patient's judgement and insights: impaired - Mood Mood: Neutral - Affect Affect: Constricted - Speech Speech: Appropriate, Soft - Formal Thought Process Formal Thought Process: Delusions - Suicidal Ideation Suicidal Ideation: No - Homicidal Ideation Homicidal Ideation: No Goal/Treatment Plan - Goal/Treatment Plan Need for Continued Stay: Severe functional impairment Progress Toward Problem(s) and Goals/Treatment Plan: inpt milieu adjust meds per clinical status will decrease po risperidone to 1mg po bid(pt has received 2 injections of risperidone consta vital signs and clinical observation pt being followed by medicine discharge planning in progress Estimated Date of D/C: 08/07/18 - Smoking Cessation Smoking Cessation Initiated: No Reason for not providing: pt defers
--- NOTE | 2018-08-06 16:43 | PCM.PYCHPN ---
Psychiatric Progress Note - Psychiatric Progress Note Patient seen today, length of contact: Pt evaluated, case discussed w/ team, chart reviewed Patient Chief Complaint: pt seen laying in room, then walking about in unit, at times pacing, calling out at times. requires total care, adherent with rx with set up for meals and medications. pt able to communicate needs ie need for restroom, toilet paper, pt seen when pacing or walking in unit full weight bearing, steady gait. takes rx with assistance and set Problems Identified/Issues Discussed: alteration in mood alteration in self care alteration health status Medical Problems: per chart Diagnostic Results: per psychiatry per medicine per nursing per social work per recreational therapy DSM 5 Symptoms Update: appears to be reaching baseline Medication Change: No Medical Record Reviewed: Yes Consults ordered or reviewed: pt being followed by hospitalist Mental Status Examination - Cognitive Function Orientation: Person, Place, Situation, Time Memory: Impaired Attention: WNL Concentration: WNL Association: Loose Fund of Knowledge: Poor Decription of patient's judgement and insights: impaired - Mood Mood: Neutral - Affect Affect: Constricted - Speech Speech: Appropriate, Soft - Formal Thought Process Formal Thought Process: Delusions - Suicidal Ideation Suicidal Ideation: No - Homicidal Ideation Homicidal Ideation: No Goal/Treatment Plan - Goal/Treatment Plan Need for Continued Stay: Severe functional impairment Progress Toward Problem(s) and Goals/Treatment Plan: inpt milieu adjust meds per clinical status will decrease po risperidone to 0.5mg po bid(pt has received 2 injections of risperidone consta) pt with on going down titration starting tomorrow vital signs and clinical observation pt being followed by medicine discharge planning in progress Estimated Date of D/C: 08/15/18 - Smoking Cessation Smoking Cessation Initiated: No
--- NOTE | 2018-08-07 09:49 | CARD ---
APPROVED REPORT Date of service: 08/06/2018 EKG Measurement Heart [id number] <Conclusion> Normal sinus rhythm Normal ECG
--- NOTE | 2018-08-07 17:16 | PCM.PYCHPN ---
Psychiatric Progress Note - Psychiatric Progress Note Patient seen today, length of contact: Pt evaluated, case discussed w/ team, chart reviewed Patient Chief Complaint: pt seen laying in room, less pacing noted in unit, responds appropriately to simple questions commands. requires total care. team has been in contact related with various ltc agencies placement. Problems Identified/Issues Discussed: alteration in mood alteration in self care alteration health status Medical Problems: per chart Diagnostic Results: per psychiatry per medicine per nursing per social work per recreational therapy DSM 5 Symptoms Update: appears to be reaching base line function, cognitive/coping requires total care Medication Change: No Medical Record Reviewed: Yes Consults ordered or reviewed: pt being followed by medical team Mental Status Examination - Cognitive Function Orientation: Person, Place, Situation, Time Memory: Impaired Attention: WNL Concentration: WNL Association: Loose Fund of Knowledge: Poor Decription of patient's judgement and insights: impaired - Mood Mood: Neutral - Affect Affect: Constricted - Speech Speech: Appropriate, Soft - Formal Thought Process Formal Thought Process: Delusions - Suicidal Ideation Suicidal Ideation: No - Homicidal Ideation Homicidal Ideation: No Goal/Treatment Plan - Goal/Treatment Plan Need for Continued Stay: Severe functional impairment Progress Toward Problem(s) and Goals/Treatment Plan: inpt milieu adjust meds per clinical status will discontinue po risperidone (pt has received 2 injections of risperidone consta) pt being followed by medicine discharge planning in progress Estimated Date of D/C: 08/15/18 - Smoking Cessation Smoking Cessation Initiated: No Reason for not providing: pt defers
--- NOTE | 2018-08-08 12:10 | PCM.PYCHPN ---
Psychiatric Progress Note - Psychiatric Progress Note Patient seen today, length of contact: Pt evaluated, case discussed w/ team, chart reviewed Patient Chief Complaint: I am alright Problems Identified/Issues Discussed: pt seen in bed, guarded , anxious mood , irritable affect, under productive speech, denied changes in sleep or appetite, no reported side effects of medications pt denied command hallucinations, denied suicidal or homicidal ideation Medication Change: No Medical Record Reviewed: Yes Mental Status Examination - Cognitive Function Orientation: Person, Place, Situation, Time Memory: Impaired Attention: WNL Concentration: WNL Association: Loose Fund of Knowledge: Poor - Mood Mood: Neutral - Affect Affect: Constricted - Speech Speech: Appropriate, Soft - Formal Thought Process Formal Thought Process: Delusions - Suicidal Ideation Suicidal Ideation: No - Homicidal Ideation Homicidal Ideation: No Goal/Treatment Plan - Goal/Treatment Plan Need for Continued Stay: Severe functional impairment Progress Toward Problem(s) and Goals/Treatment Plan: continue with risperidone continue with fluid restriction group and supportive therapy disposition planning Estimated Date of D/C: 08/15/18
[2018-08-08 17:44] LABS: ALB/GLOB RATIO 1.3 (1.0-2.1); ALT/SGPT 20 U/L (9-52); AST/SGOT 22 U/L (14-36); BLOOD UREA NITROGEN 9 mg/dl (7-17); CALCIUM 9.6 mg/dL (8.4-10.2); GFR NON-AFRICAN AMERICAN > 60
--- NOTE | 2018-08-09 12:08 | PCM.PYCHPN ---
Psychiatric Progress Note - Psychiatric Progress Note Patient seen today, length of contact: Pt evaluated, case discussed w/ team, chart reviewed Patient Chief Complaint: I am fine Problems Identified/Issues Discussed: pt seen in bed, partial eye contact, guarded , anxious mood , irritable affect, under productive speech, denied changes in sleep or appetite, no reported side effects of medications pt denied command hallucinations, denied suicidal or homicidal ideation Medication Change: No Medical Record Reviewed: Yes Mental Status Examination - Cognitive Function Orientation: Person, Place, Situation, Time Memory: Impaired Attention: WNL Concentration: WNL Association: Loose Fund of Knowledge: Poor - Mood Mood: Neutral - Affect Affect: Constricted - Speech Speech: Appropriate, Soft - Formal Thought Process Formal Thought Process: Delusions - Suicidal Ideation Suicidal Ideation: No - Homicidal Ideation Homicidal Ideation: No Goal/Treatment Plan - Goal/Treatment Plan Need for Continued Stay: Discharge may exacerbated symptoms, Severe functional impairment Progress Toward Problem(s) and Goals/Treatment Plan: continue with risperidone continue with fluid restriction/ na level noted 131 group and supportive therapy disposition planning Estimated Date of D/C: 08/15/18
--- NOTE | 2018-08-09 21:19 | CARD ---
APPROVED REPORT Date of service: 08/09/2018 EKG Measurement Heart [id number] <Conclusion> Normal sinus rhythm Normal ECG
--- NOTE | 2018-08-10 09:43 | PCM.PYCHPN ---
Psychiatric Progress Note - Psychiatric Progress Note Patient seen today, length of contact: Pt evaluated, case discussed w/ team, chart reviewed Patient Chief Complaint: Inability to care for self Problems Identified/Issues Discussed: No new events over the weekend. No agitation or aggression. Patient pending bed bug exterminator placement as she is not able to care for herself. No acute AH/VH/SI/HI. Medication Change: No Medical Record Reviewed: Yes Consults ordered or reviewed: Medicine consult, Psychology consult, PRODUCT MANUFACTURING PROFESSIONAL consult Mental Status Examination - Cognitive Function Orientation: Person, Place, Situation, Time Memory: Impaired Attention: WNL Concentration: WNL Association: Loose Fund of Knowledge: Poor Decription of patient's judgement and insights: Chronic limitations in I/J - Mood Mood: Neutral - Affect Affect: Constricted - Speech Speech: Appropriate - Formal Thought Process Formal Thought Process: Delusions Psychotic Thoughts and Behaviors: Chronic delusions that she can resurrect the ; patient does not talk or act on these delusions - Suicidal Ideation Suicidal Ideation: No - Homicidal Ideation Homicidal Ideation: No Goal/Treatment Plan - Goal/Treatment Plan Need for Continued Stay: Severe functional impairment Progress Toward Problem(s) and Goals/Treatment Plan: Bipolar Disorder w/ Psychotic Features; Major Neurocognitive Disorder -Individual and group therapy -Psychoeducation -Risperdal Consta 25 mg IM Q2 weeks given on 08/04/18 -Fluid Restriction -Medicine consult -PRODUCT MANUFACTURING PROFESSIONAL consult -Disposition planning- refer for bed bug exterminator placement
--- NOTE | 2018-08-11 09:38 | PCM.PYCHPN ---
Psychiatric Progress Note - Psychiatric Progress Note Patient seen today, length of contact: Pt evaluated, case discussed w/ team, chart reviewed Patient Chief Complaint: Inability to care for self Problems Identified/Issues Discussed: No new events. No acute behavioral issues. No agitation or aggression. Patient pending group home placement as she is not able to care for herself. No acute AH/VH/SI/HI. Medication Change: No Medical Record Reviewed: Yes Consults ordered or reviewed: Medicine consult, Psychology consult, PELLETISING EXTRUDER OPERATOR consult Mental Status Examination - Cognitive Function Orientation: Person, Place, Situation, Time Memory: Impaired Attention: WNL Concentration: WNL Association: Loose Fund of Knowledge: Poor Decription of patient's judgement and insights: Chronic limitations in I/J - Mood Mood: Neutral - Affect Affect: Constricted - Speech Speech: Appropriate - Formal Thought Process Formal Thought Process: Delusions Psychotic Thoughts and Behaviors: Chronic delusions that she can resurrect the ; patient does not talk or act on these delusions - Suicidal Ideation Suicidal Ideation: No - Homicidal Ideation Homicidal Ideation: No Goal/Treatment Plan - Goal/Treatment Plan Need for Continued Stay: Severe functional impairment Progress Toward Problem(s) and Goals/Treatment Plan: Bipolar Disorder w/ Psychotic Features; Major Neurocognitive Disorder -Individual and group therapy -Psychoeducation -Risperdal Consta 25 mg IM Q2 weeks given on 08/04/18 -Fluid Restriction -Medicine consult -PELLETISING EXTRUDER OPERATOR consult -Disposition planning- refer for ocean transportation intermediary placement Estimated Date of D/C: 08/15/18
--- NOTE | 2018-08-12 08:21 | PCM.PYCHPN ---
Psychiatric Progress Note - Psychiatric Progress Note Patient seen today, length of contact: Pt evaluated, case discussed w/ team, chart reviewed Patient Chief Complaint: Inability to care for self Problems Identified/Issues Discussed: No new events, no behavioral issues, no agitation or aggression. Patient pending oysterman placement as she is not able to care for herself. No acute AH/VH/SI/HI. Medication Change: No Medical Record Reviewed: Yes Consults ordered or reviewed: Medicine consult, Psychology consult, FAN RUNNER consult Mental Status Examination - Cognitive Function Orientation: Person, Place, Situation, Time Memory: Impaired Attention: WNL Concentration: WNL Association: Loose Fund of Knowledge: Poor Decription of patient's judgement and insights: Chronic limitations in I/J - Mood Mood: Neutral - Affect Affect: Constricted - Speech Speech: Appropriate - Formal Thought Process Formal Thought Process: Delusions Psychotic Thoughts and Behaviors: Chronic delusions that she can resurrect the ; patient does not talk or act on these delusions - Suicidal Ideation Suicidal Ideation: No - Homicidal Ideation Homicidal Ideation: No Goal/Treatment Plan - Goal/Treatment Plan Need for Continued Stay: Severe functional impairment Progress Toward Problem(s) and Goals/Treatment Plan: Bipolar Disorder w/ Psychotic Features; Major Neurocognitive Disorder -Individual and group therapy -Psychoeducation -Risperdal Consta 25 mg IM Q2 weeks given on 08/04/18 -Fluid Restriction -Medicine consult -FAN RUNNER consult -Disposition planning- refer for oysterman placement
[2018-08-13] MEDS: Pantoprazole 40 mg EC Tab PO SCH (05:29)
--- NOTE | 2018-08-13 08:34 | PCM.PYCHPN ---
Psychiatric Progress Note - Psychiatric Progress Note Patient seen today, length of contact: Pt evaluated, case discussed w/ team, chart reviewed Patient Chief Complaint: Inability to care for self Problems Identified/Issues Discussed: No behavioral issues, no agitation or aggression. Patient pending parts counterman placement as she is not able to care for herself. No acute AH/VH/SI/HI. Patient has not had any active herpes infection for several weeks and does not need contact precautions. Medication Change: No Medical Record Reviewed: Yes Consults ordered or reviewed: Medicine consult, Psychology consult, MEMORY CARE PROGRAM DIRECTOR consult Mental Status Examination - Cognitive Function Orientation: Person, Place, Situation, Time Memory: Impaired Attention: WNL Concentration: WNL Association: Loose Fund of Knowledge: Poor Decription of patient's judgement and insights: Chronic limitations in I/J - Mood Mood: Neutral - Affect Affect: Constricted - Speech Speech: Appropriate - Formal Thought Process Formal Thought Process: Delusions Psychotic Thoughts and Behaviors: Chronic delusions that she can resurrect the ; patient does not talk or act on these delusions - Suicidal Ideation Suicidal Ideation: No - Homicidal Ideation Homicidal Ideation: No Goal/Treatment Plan - Goal/Treatment Plan Need for Continued Stay: Severe functional impairment Progress Toward Problem(s) and Goals/Treatment Plan: Bipolar Disorder w/ Psychotic Features; Major Neurocognitive Disorder -Individual and group therapy -Psychoeducation -Risperdal Consta 25 mg IM Q2 weeks given on 08/04/18 -Fluid Restriction -Medicine consult -MEMORY CARE PROGRAM DIRECTOR consult -Disposition planning- refer for half-way placement
--- NOTE | 2018-08-14 08:28 | PCM.PYCHPN ---
Psychiatric Progress Note - Psychiatric Progress Note Patient seen today, length of contact: Pt evaluated, case discussed w/ team, chart reviewed Patient Chief Complaint: Inability to care for self Problems Identified/Issues Discussed: No new events overnight. No behavioral issues, no agitation or aggression. Patient pending care home placement as she is not able to care for herself. No acute AH/VH/SI/HI. Medication Change: No Medical Record Reviewed: Yes Consults ordered or reviewed: Medicine consult, Psychology consult, HEEL BURNISHER consult Mental Status Examination - Cognitive Function Orientation: Person, Place, Situation, Time Memory: Impaired Attention: WNL Concentration: WNL Association: Loose Fund of Knowledge: Poor Decription of patient's judgement and insights: Chronic limitations in I/J - Mood Mood: Neutral - Affect Affect: Broad - Speech Speech: Appropriate - Formal Thought Process Formal Thought Process: Delusions Psychotic Thoughts and Behaviors: Chronic delusions that she can resurrect the ; patient does not talk or act on these delusions - Suicidal Ideation Suicidal Ideation: No - Homicidal Ideation Homicidal Ideation: No Goal/Treatment Plan - Goal/Treatment Plan Need for Continued Stay: Severe functional impairment Progress Toward Problem(s) and Goals/Treatment Plan: Bipolar Disorder w/ Psychotic Features; Major Neurocognitive Disorder -Individual and group therapy -Psychoeducation -Risperdal Consta 25 mg IM Q2 weeks given on 08/04/18 -Fluid Restriction -Medicine consult -HEEL BURNISHER consult -Disposition planning- refer for care home placement
[2018-08-14] MEDS: Pantoprazole 40 mg EC Tab PO SCH (08:48)
[2018-08-14 10:33] LABS: ALB/GLOB RATIO 1.3 (1.0-2.1); ALBUMIN 4.1 g/dL (3.5-5.0); ALT/SGPT 26 U/L (9-52); AST/SGOT 17 U/L (14-36); BLOOD UREA NITROGEN 15 mg/dl (7-17); CALCIUM 9.5 mg/dL (8.4-10.2); GFR NON-AFRICAN AMERICAN > 60
--- NOTE | 2018-08-14 15:06 | PCM.BM ---
Treatment Plan Problems - Problems identified on initial assessmt Problem 2 Date Initiated: 07/16/18 Time Initiated: 17:29 Assessment reference: HP, NA Status: Active Agitated/Aggressive Behavior Date Initiated: 07/16/18 Time Initiated: 17:26 Assessment reference: HP, NA Status: Active Priority: 1 Altered Thought Process Date Initiated: 07/16/18 Time Initiated: 17:30 Assessment reference: HP, NA Status: Active Anxiety Date Initiated: 07/16/18 Time Initiated: 17:29 Assessment reference: HP, NA Status: Active Treatment assets and liabiliti Patient Assests: cooperative, negotiates basic needs Patient Liabilities: medical problems - Milieu Protocol Maintain good personal hygiene: daily Encourage regular showers, daily Remind patient to perform daily oral care, daily Assist patient to perform ADL's Conduct patient checks and document Observation sheet: Q15 minutes Maintain personal safety: every shift Educate patient to report safety concerns to staff, every shift Monitor environment for contraband/sharps Medication safety: Monitor for expected outcome, potential side effects: every shift, Assess barriers to learning: every shift, Assess readiness for medication education: every shift Milieu Narrative: Bipolar Disorder w/ Psychotic Features; Major Neurocognitive Disorder -Individual and group therapy -Psychoeducation -Risperdal Consta 25 mg IM Q2 weeks given on 08/04/18 -Fluid Restriction -Medicine consult -ROUTING EQUIPMENT TENDER consult -Disposition planning- refer for [facility]cc placement Family Contact Family involvement: Family/SO is involved Family contact: Patient agrees to contact, Family has been contacted by patient, Telephone contact initiated by staff Family contact name: Wendy Family contacted how many times per week?: 2 - Outside Agency Dr. Robi De La Rosa MD Care involent: Information-sharing Agency contact number: [phone] - Goals for Treatment Patient goals for treatment: Pt will improve overall symptoms. Pt will develop strategies for thought distrction when ruminating on the past. Pt will reduce anxiety and improve coping skills. Pt will comply with prescribed medications. Pt will attend clinical and activity groups. Pt will improve appetite and sleep pattern. Discharge/Continuing Care - Education Needs Education Needs: Family Medication, Family Diagnosis/Disease Process, Family Coping Skills, Family Placement options, Family Community resources, Family Nutrition, Family Health Practices/Safety, Family Personal Hygiene/Grooming, Family Aftercare Safety Plan, Patient Medication, Patient Diagnosis/Disease Process, Patient Coping Skills, Patient Placement options, Patient Community resources, Patient Nutrition, Patient Health Practices/Safety, Patient Personal Hygiene/Grooming, Patient Aftercare Safety Plan - Discharge Discharge Criteria: Tolerates medication w/o severe side effects, Free of paranoid thoughts, Free of agitation, Normal sleep pattern, Ability to care for self, Reduction of target symptoms Discharge to:: [facility]) - Additional Comments 07/17/18 15:06 Pt seen and discussed in team meeting. Reason for re-admission reviewed and discussed. Pt continues to present with grandiose, believes that she can resurrect animals. Pt reported that she has resurrected a in the past. Pt presents with pressured and loud speech. Pt reported that she does not have a psychiatric diagnosis. Pt denied being diagnosed with bipolar. Neuropsych testing conducted by Dr. Nedra Curran, Ph.D and pt refused to accept that she has some cognitive deficits. Attending psychiatrist reviewed testing results and current medication regimen with pt. Pt verbalized agreement to medication regimen. Pt's social and medical issues reviewed. Pt provided technical writer with verbal and written consent form for daughterPhyllis and son, Raymundo. Tx plan reviewed and discussed. SW will continue to follow case. - Treatment Team Participation Patient/Family/SO Statement: Bipolar Disorder w/ Psychotic Features; Major Neurocognitive Disorder -Individual and group therapy -Psychoeducation -Risperdal Consta 25 mg IM Q2 weeks given on 08/04/18 -Fluid Restriction -Medicine consult -ROUTING EQUIPMENT TENDER consult -Disposition planning- refer for mcc placement Discussed with Family/SO: No Treatment Plan Review Patient participation: No (Pt refused to attend) Family/SO/Caregiver participation: Yes (Discussed via t/c with daughterPhyllis) Additional Comments: Pt discussed in team meeting. Pt invited and refused to attend. Pt's progress and bx on the unit reviewed and discussed. Pt is pending mcc care placement. Pt continues to present wit poor insight and judgment into her mental and physical illness. Pt requires frequent re-direction. Pt continues to be on fluid restriction due to hyponatremia; however, it is difficult to re-direct pt and prevent pt from consuming more fluids. Pt is constantly screaming/yelling and calling out from her bedroom. Pt constantly calling for the RN to "cover me" "put my socks on" "i want Colace" "give me chewing gum." Pt is compliant with prescribed medication. Pt's tx plan reviewed and discussed. SW will continue to follow case. SW will continue to work with family in regards to placement. - Problem Problem 2 Time Initiated: 17:29 Agitated/Aggressive Behavior Date Initiated: 07/16/18 Time Initiated: 17:26 Progress toward outcomes: resolved Altered Thought Process Date Initiated: 07/16/18 Time Initiated: 17:30 Progress toward outcomes: resolved (Pt is alert and orieted 3x. Pt has periods of confusion and forgetfulness.) Anxiety Time Initiated: 17:29 Progress toward outcomes: unchanged (Pt continues to be anxious. Pt observed to be pacing the hallway and reportng "my heart hurts.") - Discharge / Continuing Care Discharge to:: Jail Facility (Pt is pending LTC placement. ) Behavioral Health Services: Other (Mesication management; structured group therapy) Health Needs: Follow up care/test, Doctor appointments, Special equipment, Nutritional, Medications/Rx, Educational, Recreational/Social
[2018-08-15] MEDS: Pantoprazole 40 mg EC Tab PO SCH (09:22)
--- NOTE | 2018-08-15 12:04 | PCM.PYCHPN ---
Psychiatric Progress Note - Psychiatric Progress Note Patient seen today, length of contact: Pt evaluated, case discussed w/ team, chart reviewed Patient Chief Complaint: pt seen laying in room, less pacing noted in unit, responds appropriately to simple questions commands. requires total care. team in process of being placed detention care. pt cannot care for self-requires total care per team. continues to have significantly impaired insight to health care status and ability to care for self. Problems Identified/Issues Discussed: alteration in mood alteration in self care alteration health status Medical Problems: per chart Diagnostic Results: per psychiatry per medicine per nursing per social work per recreational therapy DSM 5 Symptoms Update: significantly impaired cognitive status poor insight and judgment cannot care for self Medication Change: No Medical Record Reviewed: Yes Consults ordered or reviewed: pt being followed by medical team Mental Status Examination - Cognitive Function Orientation: Person, Place, Situation, Time Memory: Impaired Attention: WNL Concentration: WNL Association: Loose Fund of Knowledge: Poor Decription of patient's judgement and insights: significantly impaired - Mood Mood: Neutral - Affect Affect: Broad Additional comments: varies from calm to yelling requires regular support and re direction - Speech Speech: Appropriate - Formal Thought Process Formal Thought Process: Delusions, Paranoia, Loosening of associations - Suicidal Ideation Suicidal Ideation: No - Homicidal Ideation Homicidal Ideation: No Goal/Treatment Plan - Goal/Treatment Plan Need for Continued Stay: Severe functional impairment Progress Toward Problem(s) and Goals/Treatment Plan: inpt milieu adjust meds per clinical status pt being followed by medicine discharge planning in progress Estimated Date of D/C: 08/18/18 - Smoking Cessation Smoking Cessation Initiated: No Reason for not providing: pt defers
[2018-08-16] MEDS: Pantoprazole 40 mg EC Tab PO SCH (08:38)
--- NOTE | 2018-08-16 16:55 | PCM.PYCHPN ---
Psychiatric Progress Note - Psychiatric Progress Note Patient seen today, length of contact: Pt evaluated, case discussed w/ team, chart reviewed Patient Chief Complaint: pt seen laying in room, less pacing noted in unit, responds appropriately to simple questions commands. requires total care. team in process of being placed terminal block assembler care. pt cannot care for self-requires total care per team. continues to have significantly impaired insight to health care status and ability to care for self. Problems Identified/Issues Discussed: alteration in mood alteration in self care alteration health status Medical Problems: per chart Diagnostic Results: per psychiatry per medicine per nursing per social work per recreational therapy Medication Change: No Medical Record Reviewed: Yes Consults ordered or reviewed: pt being followed by medical team Mental Status Examination - Cognitive Function Orientation: Person, Place, Situation, Time Memory: Impaired Attention: WNL Concentration: WNL Association: Loose Fund of Knowledge: Poor Decription of patient's judgement and insights: significantly impaired - Mood Additional comments: somewhat labile at times appears to be at baseline - Affect Affect: Broad - Speech Additional comments: varies tone and pitch - Formal Thought Process Formal Thought Process: Delusions, Paranoia, Loosening of associations Psychotic Thoughts and Behaviors: baseline - Suicidal Ideation Suicidal Ideation: No - Homicidal Ideation Homicidal Ideation: No Goal/Treatment Plan - Goal/Treatment Plan Need for Continued Stay: Severe functional impairment Progress Toward Problem(s) and Goals/Treatment Plan: inpt milieu adjust meds per clinical status pt being followed by medicine discharge planning in progress-pending ltc Estimated Date of D/C: 08/18/18 - Smoking Cessation Smoking Cessation Initiated: No Reason for not providing: pt defers
--- NOTE | 2018-08-17 08:33 | PCM.PYCHPN ---
Psychiatric Progress Note - Psychiatric Progress Note Patient seen today, length of contact: Pt evaluated, case discussed w/ team, chart reviewed Patient Chief Complaint: Inability to care for self Problems Identified/Issues Discussed: No significant events over the weekend. No agitation or aggression. Patient pending [facility] as she is not able to care for herself. No acute AH/VH/SI/HI. Medication Change: No Medical Record Reviewed: Yes Consults ordered or reviewed: Medicine consult, Psychology consult, TACK PULLER MACHINE consult Mental Status Examination - Cognitive Function Orientation: Person, Place, Situation, Time Memory: Impaired Attention: WNL Concentration: WNL Association: Loose Fund of Knowledge: Poor Decription of patient's judgement and insights: Chronic poor I/J due to neurocognitive impairment - Mood Mood: Neutral - Affect Affect: Broad - Speech Speech: Appropriate - Formal Thought Process Formal Thought Process: Delusions, Loosening of associations Psychotic Thoughts and Behaviors: Patient has chronic fixed delusions that she can resurrect the , but patient does not act on these delusions or talk about them unless explicitly asked. - Suicidal Ideation Suicidal Ideation: No - Homicidal Ideation Homicidal Ideation: No Goal/Treatment Plan - Goal/Treatment Plan Progress Toward Problem(s) and Goals/Treatment Plan: Bipolar Disorder w/ Psychotic Features; Major Neurocognitive Disorder -Individual and group therapy -Psychoeducation -Risperdal Consta 25 mg IM Q2 weeks given on 08/04/18; next dose due on 08/18/18 -Fluid Restriction -Medicine consult -TACK PULLER MACHINE consult -Disposition planning- pending buttermaker continuous churn placement Estimated Date of D/C: 08/21/18
[2018-08-17] MEDS: Pantoprazole 40 mg EC Tab PO SCH (09:29)
--- NOTE | 2018-08-18 08:09 | PCM.PYCHPN ---
Psychiatric Progress Note - Psychiatric Progress Note Patient seen today, length of contact: Pt evaluated, case discussed w/ team, chart reviewed Patient Chief Complaint: Inability to care for self Problems Identified/Issues Discussed: No new events. No agitation or aggression. Patient pending longterm placement as she is not able to care for herself. No acute AH/VH/SI/HI. Medication Change: No Medical Record Reviewed: Yes Consults ordered or reviewed: Medicine consult, Psychology consult, HEMSTITCHER consult Mental Status Examination - Cognitive Function Orientation: Person, Place, Situation, Time Memory: Impaired Attention: WNL Concentration: WNL Association: Loose Fund of Knowledge: Poor Decription of patient's judgement and insights: Chronic poor I/J due to neurocognitive impairment - Mood Mood: Neutral - Affect Affect: Broad - Speech Speech: Appropriate - Formal Thought Process Formal Thought Process: Delusions, Loosening of associations Psychotic Thoughts and Behaviors: Patient has chronic fixed delusions that she can resurrect the , but patient does not act on these delusions or talk about them unless explicitly asked. - Suicidal Ideation Suicidal Ideation: No - Homicidal Ideation Homicidal Ideation: No Goal/Treatment Plan - Goal/Treatment Plan Progress Toward Problem(s) and Goals/Treatment Plan: Bipolar Disorder w/ Psychotic Features; Major Neurocognitive Disorder -Individual and group therapy -Psychoeducation -Risperdal Consta 25 mg IM Q2 weeks given on 08/04/18; next dose due on today, 08/18/18 -Fluid Restriction -Medicine consult -HEMSTITCHER consult -Disposition planning- pending terminal press operator placement
[2018-08-18] MEDS: Pantoprazole 40 mg EC Tab PO SCH (08:26)
[2018-08-18] MEDS ORDERED: risperiDONE Consta 25mg/2ml Syringe IM ONE (09:00)
[2018-08-19] MEDS: Pantoprazole 40 mg EC Tab PO SCH (08:23)
--- NOTE | 2018-08-19 08:38 | PCM.PYCHPN ---
Psychiatric Progress Note - Psychiatric Progress Note Patient seen today, length of contact: Pt evaluated, case discussed w/ team, chart reviewed Patient Chief Complaint: Inability to care for self Problems Identified/Issues Discussed: No new events overnight. No behavioral issues. Patient pending residential placement as she is not able to care for herself. No acute AH/VH/SI/HI. Medication Change: Yes (Risperdal Consta 25 mg IM today) Medical Record Reviewed: Yes Consults ordered or reviewed: Medicine consult, Psychology consult, MEDICAL STAFF CREDENTIALING COORDINATOR consult Mental Status Examination - Cognitive Function Orientation: Person, Place, Situation, Time Memory: Impaired Attention: WNL Concentration: WNL Association: Loose Fund of Knowledge: Poor Decription of patient's judgement and insights: Chronic poor I/J due to neurocognitive impairment - Mood Mood: Neutral - Affect Affect: Broad - Speech Speech: Appropriate - Formal Thought Process Formal Thought Process: Delusions, Loosening of associations Psychotic Thoughts and Behaviors: Patient has chronic fixed delusions that she can resurrect the , but patient does not act on these delusions or talk about them unless explicitly asked. - Suicidal Ideation Suicidal Ideation: No - Homicidal Ideation Homicidal Ideation: No Goal/Treatment Plan - Goal/Treatment Plan Progress Toward Problem(s) and Goals/Treatment Plan: Bipolar Disorder w/ Psychotic Features; Major Neurocognitive Disorder -Individual and group therapy -Psychoeducation -Risperdal Consta 25 mg IM today, 08/19/18 -Fluid Restriction -Medicine consult -MEDICAL STAFF CREDENTIALING COORDINATOR consult -Disposition planning- pending terminal operations supervisor placement
[2018-08-19] MEDS ORDERED: risperiDONE Consta 25mg/2ml Syringe IM ONE (09:00)
[2018-08-20 06:30] VITALS: BP 108/71; PULSE 71; RESP 20; TEMP 97.7
--- NOTE | 2018-08-20 08:03 | PCM.PYCHDC ---
Mental Status Examination - Mental Status Examination Orientation: Person, Place, Situation, Time Memory: Impaired Mood: Neutral Affect: Broad Speech: Appropriate Formal Thought Process: Delusions Description of patient's judgement and insight: Chronic poor I/J due to neurocognitive impairment Psychotic Thoughts and Behaviors: Patient has chronic fixed delusions that she can resurrect the , but patient does not act on these delusions or talk about them unless explicitly asked. Suicidal Ideation: No Current Homicidal Ideation?: No Discharge Summary - Discharge Note Reason for Hospitalization: HPI: 68 yo female w/ h/o bipolar disorder, poor compliance with treatment and medications, recently admitted to [facility], then transferred to medicine for severe hyponatremia secondary to psychogenic polydipsia and possibly due to treatment w/ trileptal (now discontinued), now admitted back to the geriatric psychiatry unit for continued erick, mood lability, bizarre/erratic behavior and delusional beliefs that she can resurrect animals. She denies acute SI/HI. 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; Hyponatremia; Colonic Polyp PSH: Anal Fistule repair SH: Former smoker; no alcohol nor drug use; lives alone Allergies: NKDA Consultations:: List each consultation separately and include: 1. Reason for request. 2. Findings. 3. Follow-up Consultations: Medicine consult, Psychology consult, BAG PRINTER consult Summary of Hospital Course include:: 1. Description of specific treatment plan utilized for patients during their course of treatmen. 2. Summarize the time- course for resolution of acute symptoms and/or regressed behaviors. 3. Describe issues identified and worked on during hospitalization. 4. Describe medication utilized. 5. Describe medical problems identified and treated. 6. Reassessment of suicide risk Summary of Hospital Course: Patient was admitted to the psychiatry unit. Individual and group therapy were provided. Patient was stabilized on Risperdal Consta 25 mg IM Q2 weeks. She denies acute mood disturbances. No acute behavioral issues. Patient is psychiatrically stable for discharge at this time. Next Risperdal Consta 25 mg IM due on 09/02/18 - Diagnosis (1) Bipolar I disorder Current Visit: No Status: Acute - Final Diagnosis (DSM 5) Condition upon Discharge: STABLE DSM 5: Bipolar I Disorder w/ Psychotic Features Disposition: TRANSF TO SNF Follow-up Treatment Plan: Bipolar Disorder w/ Psychotic Features; Major Neurocognitive Disorder; discharge to middle or intermediate school principal placement. -Next Risperdal Consta 25 mg IM due on 09/02/18 -Fluid Restriction - Smoking Cessation Smoking Cessation Medication prescribed: No Reason for not providing: Not indicated - Antipsychotic Medications Pt discharged on 2 or more routine antipsychotic medications: No
[2018-08-20] MEDS: Pantoprazole 40 mg EC Tab PO SCH (08:08)
== END 2018-08-20 10:15 | DRG 885 ==
LOC: H.STEP 15:15
PROVIDERS: ADMIT Psychiatry & Neurology Psychiatry; ATTEND Psychiatry & Neurology Psychiatry
PROC: GZHZZZZ Group Psychotherapy (ICD-10-PCS; principal; 2018-07-16)
PROC: GZ56ZZZ Individual Psychotherapy, Supportive (ICD-10-PCS; 2018-07-16)
DX: F31.5 Bipolar disorder, current episode depressed, severe, with psychotic features (principal); E87.1 Hypo-osmolality and hyponatremia; N82.3 Fistula of vagina to large intestine; F01.50 Vascular dementia, unspecified severity, without behavioral disturbance, psychotic disturbance, mood disturbance, and anxiety; R07.89 Other chest pain; R21 Rash and other nonspecific skin eruption; Z87.891 Personal history of nicotine dependence; R15.9 Full incontinence of feces; N89.5 Stricture and atresia of vagina; N83.202 Unspecified ovarian cyst, left side